=== PATIENT | male | born 1950 | race African-American/Black ===

== ENCOUNTER 2020-05-22 04:24 | Inpatient (IN) | payer OTHER ==
[2020-05-21 08:36] VITALS: BMI 23.0
[2020-05-22 10:57] LABS: HEMATOCRIT 36.1 % (35.4-49); MCH 30.7 pg (25.7-33.7); MCHC 33.4 g/dl (32.0-35.9); MEAN CELL VOLUME 91.9 fl (80-96); MEAN PLT VOLUME 6.8 fl (7.5-11.1); PLATELET COUNT 302 K/MM3 (134-434); RBC 3.92 M/mm3 (4.00-5.60); RDW 13.1 % (11.9-15.9); WHITE BLOOD COUNT 6.6 K/mm3 (4.0-10.0)
[2020-05-22] MEDS ORDERED: CEFAZOLIN 2 GM in DEXTROSE 5%-WATER 100 ML IVPB ONE (11:12)
[2020-05-22] MEDS ORDERED: ceFAZolin SODIUM 1 GM VIAL ONE ×2 (11:49→16:37)
--- NOTE | 2020-05-22 12:02 | HP ---
History & Physical Update - History History: No Change - Physical Physical: No Change - Assessment Assessment: No Change - Plan Plan: No Change (h/o dvt 1 year ago, off eliquis 1 month)
[2020-05-22] MEDS ORDERED: MIDAZOLAM HCL 2 MG/2 ML SINGLE DOSE VIAL ONE (12:18)
[2020-05-22] MEDS ORDERED: ceFAZolin SODIUM 1 GM VIAL IVPB ONE (12:22)
[2020-05-22] MEDS ORDERED: PROPOFOL 20 ML ONE (12:43)
[2020-05-22] MEDS ORDERED: EPHEDRINE SULFATE/0.9% NACL/PF 50 MG/10 ML SYRINGE NR ONE (12:44)
[2020-05-22] MEDS ORDERED: MAGNESIUM HYDROX 2400MG/30ML ORAL SUSPENSION 30 ML CUP PO PRN (14:43)
[2020-05-22] MEDS ORDERED: ONDANSETRON 4 MG/2 ML VIAL IVPUSH PRN ×2 (14:43→14:51)
[2020-05-22] MEDS ORDERED: MAG HYDROX/AL HYDROX/SIMETH 30 ML UNIT-DOSE CUP PO PRN (14:43)
[2020-05-22] MEDS ORDERED: LACTATED RINGERS SOLUTION 1,000 ML IV SCH ×2 (14:45→15:00)
[2020-05-22] MEDS ORDERED: ACETAMINOPHEN 325 MG TABLET (FP) PO PRN (14:51)
[2020-05-22] MEDS ORDERED: HYDROmorphone HCl 2 MG/ML VIAL IVPUSH ONE (14:54)
[2020-05-22] MEDS ORDERED: oxyCODONE HCL 5 MG TABLET PO PRN ×2 (15:08)
[2020-05-22] MEDS ORDERED: BENZOCAINE/MENTH/CETYLPYRD CL 1 EACH LOZENGE MM PRN (15:10)
[2020-05-22] MEDS ORDERED: FAMOTIDINE 20 MG TABLET PO PRN (15:10)
--- NOTE | 2020-05-22 16:06 | OP ---
DATE OF OPERATION: 05/22/2020 PREOPERATIVE DIAGNOSIS: Severe osteoarthritis of the right hip. POSTOPERATIVE DIAGNOSES: Severe osteoarthritis of the right hip, plus hypertrophic capsulitis. SURGEON: Kyaw Hayden MD ANESTHESIA: Spinal. PROCEDURE: Total hip replacement, excision of hypertrophied capsule and ossification of the acetabulum. After the induction of spinal anesthesia, the patient was placed on his left lateral decubitus, and the pelvis was stabilized in a near-perfect vertical position using an appropriate positioner. Following this, the entire leg and knee and thigh and gluteal area were now prepped and draped in a free manner. A 12-cm incision was made over the lateral aspect of the hip centered over the greater trochanter. It was deepened through the subcutaneous tissue, down to the fascia which was incised in line with the skin incision. The fibers of the gluteus rené were split in the same direction. The retrotrochanteric area now was visualized. A gentle internal rotation was applied to the leg. The rotators of the hip were now identified, and they were released from their insertion over the intertrochanteric line. Further internal rotation was done, and the femoral head now was dislocated from the acetabulum. Inspection confirmed massive arthritic changes in the form of large areas of absence of articular cartilage as well as marginal osteophytes. Inspection of the acetabulum showed very severe hypertrophy of the synovium and the round ligament. There were large marginal osteophytes around the acetabulum. The procedure started first by excision of the hypertrophied capsule. This was followed by removal of all the peripheral osteophytes. Following this, progressive reaming of the acetabulum was done until I was able to reach a 54-mm diameter. A trial cup showed a very good seating. The area was irrigated further with normal saline, hemostasis obtained, and the final acetabular cup from a [employer] [place] prosthesis were now press-fit into the acetabulum. Even though the cup was very solid, I decided to supplement the fixation with 1 single screw into the ilium. The polyethylene liner for a 36-mm femoral ball was now press-fit into the acetabular shell. Its fixation was checked, and it was found to be very solid. Attention now was turned to the femoral canal which was reamed and broached to a number 12 [place] stem. A trial with a 56-mm femoral ball +4 showed very good stability of the hip even when it was taken into 90 degrees of flexion and 60 degrees of internal rotation. All temporary components now were removed. Irrigation was done again with normal saline. The final stem now was press-fit within the intramedullary canal in the appropriate direction of anteversion. It was covered by the femoral ball and reduced into the acetabulum. One more time, the stability was checked, and it was found to be very stable even up to 90 degrees of flexion and 60 degrees of internal rotation. Final irrigation was done with normal saline, hemostasis obtained, and the wound closed in several layers, Vicryl No. 1 for the capsule and the fascia, 2-0 for the subcutaneous tissue, and ravi for the skin. A dressing was applied. Patient was turned on his back. Intraoperative x-rays were done and checked, and showed an excellent seating and alignment of the prosthesis. The patient tolerated the procedure and left the operating room in excellent condition. Gilberto [id number]
[2020-05-22] MEDS: CEFAZOLIN 2 GM/D5W 2 GM/50 ML ML IVPB SCH ×2 (17:05→17:29)
--- NOTE | 2020-05-22 18:40 | PN ---
Teaching Attending Note Name of Resident: Bernardino Deng ATTENDING PHYSICIAN STATEMENT I saw and evaluated the patient. I reviewed the resident's note and discussed the case with the resident. I agree with the resident's findings and plan as documented. SUBJECTIVE: OBJECTIVE: ASSESSMENT AND PLAN: 70 year old male with a PMHx notable for DVT (has been off eliquis x 1 month), hyperlipidemia, osteoarthritis, and hypothyrodism He is post-op day #0 s/p hip replacement surgery. PLAN # s/p hip replacement surgery- further management as per ortho - post op DVT prophylaxsis with SQ lovenox, duration as per ortho # DVT (off eliqis x 1 month) ? Resume eliquis after recovery # Hyperlipidemia- resume statin Thank you very much for the courtesy of this consult, will follow along with you
--- NOTE | 2020-05-22 19:35 | HP ---
CHIEF COMPLAINT: Post op hip replacement PCP: Dr. Jose Deng HISTORY OF PRESENT ILLNESS: Mr. Cartagena is a 70M w a h/o HTN, HLD, possible provoked DVT on eliquis for 1 year, history of alcohol abuse, and current 1/2 ppd smoker presenting POD#0 total right hip replacement. Patient noted to have right sided hip pain for the past decade. He was refered by his primary care physician for a total right hip replacement. Patient denies any complaints of pain, fatigue, fever, sweating, SOB, chest pain, numbness or tingling in his UE or LE. Patient is tolerating a full diet and will be monitored for 24 hours before rehab placement. Patient noted to have been on 2L on NC. Recent Travel: Denies PAST MEDICAL HISTORY: hpi PAST SURGICAL HISTORY: hpi Social History: Smokin.5 PPD for 53 years Alcohol: in the past Drugs: denies Allergies No Known Allergies Allergy (Verified 05/22/20 11:12) HOME MEDICATIONS: Home Medications Medication Instructions Recorded Levothyroxine [Synthroid -] 100 mcg PO DAILY 05/21/20 Rosuvastatin [Crestor -] 10 mg PO DAILY 05/21/20 Saw/Vit E/Sod Eliana/Lyc/Beta/Pyg 1 each PO DAILY 05/21/20 [[facility]] REVIEW OF SYSTEMS CONSTITUTIONAL: Absent: fever, chills, diaphoresis, generalized weakness, malaise, loss of appetite, weight change HEENT: Absent: rhinorrhea, nasal congestion, throat pain, throat swelling, difficulty swallowing, mouth swelling, ear pain, eye pain, visual changes CARDIOVASCULAR: Absent: chest pain, syncope, palpitations, irregular heart rate, lightheadedness, peripheral edema RESPIRATORY: Absent: cough, shortness of breath, dyspnea with exertion, orthopnea, wheezing, stridor, hemoptysis GASTROINTESTINAL: Absent: abdominal pain, abdominal distension, nausea, vomiting, diarrhea, constipation, melena, hematochezia GENITOURINARY: Absent: dysuria, frequency, urgency, hesitancy, hematuria, flank pain, genital pain PSYCHIATRIC: Absent: anxiety, depression, suicidal or homicidal ideation, hallucinations. PHYSICAL EXAMINATION Vital Signs - 24 hr 05/22/20 05/22/20 05/22/20 14:46 15:05 15:20 Temperature 98.4 F Pulse Rate 47 L 47 L 45 L Respiratory 14 16 16 Rate Blood Pressure 155/64 142/69 146/69 O2 Sat by Pulse 100 100 100 Oximetry (%) 05/22/20 05/22/20 05/22/20 15:35 15:50 16:05 Temperature Pulse Rate 46 L 46 L 47 L Respiratory 16 16 16 Rate Blood Pressure 146/69 143/76 143/74 O2 Sat by Pulse 100 100 100 Oximetry (%) 05/22/20 05/22/20 05/22/20 16:20 16:35 16:46 Temperature 97.8 F Pulse Rate 48 L 48 L 48 L Respiratory 16 14 15 Rate Blood Pressure 140/74 140/67 143/73 O2 Sat by Pulse 100 100 100 Oximetry (%) 05/22/20 17:26 Temperature 98 F Pulse Rate 58 L Respiratory 18 Rate Blood Pressure 147/82 O2 Sat by Pulse 100 Oximetry (%) GENERAL: Awake, alert, and fully oriented, in no acute distress. LUNGS: Breath sounds equal, clear to auscultation bilaterally. No wheezes, and no crackles. No accessory muscle use. HEART: Regular rate and rhythm, normal S1 and S2 without murmur, rub or gallop. ABDOMEN: Soft, nontender, not distended, normoactive bowel sounds, no guarding, no rebound, no masses. No hepatomegaly or splenomegaly. UPPER EXTREMITIES: 2+ pulses, warm, well-perfused. No cyanosis. No clubbing. No peripheral edema. LOWER EXTREMITIES: 2+ pulses, warm, well-perfused. No calf tenderness. No peripheral edema. SKIN: Warm, dry, normal turgor, no rashes or lesions noted, normal capillary refill. Laboratory Results - last 24 hr 05/22/20 05/22/20 10:15 10:15 WBC 6.6 RBC 3.92 L Hgb 12.0 Hct 36.1 MCV 91.9 MCH 30.7 MCHC 33.4 RDW 13.1 Plt Count 302 MPV 6.8 L Blood Type O POSITIVE Antibody Screen Negative ASSESSMENT/PLAN: Mr. Cartagena is a 70M w a h/o HTN, HLD, possible provoked DVT on eliquis for 1 year, osteoarthritis, hypothyroidism history of alcohol abuse, and current 1/2 ppd smoker presenting POD#0 total right hip replacement. Patient noted to have right sided hip pain for the past decade. PLAN # s/p hip replacement surgery - monitor 24 for fever, tachycardia, flatus/BM - patient tolerating full diet - monitor wound and LE pulses - patient placed on Lovenox sq 30BID - pain control - oxycodone 10mg prn Q3H - acetaminophen 650 q4h prn - LR ABX ppx- cephazolin 2gm Q8H # DVT ppx - patient placed on lovenox 30 BID SQ - patient will continue asa 81 BID for at least 30 days # Hyperlipidemia - Home Rosuvastain 10mg PO HS #Hypothyroidism - Levothyroxin 100mcg Family Medical History Family History: Denies Visit type - Medication Review Med list reviewed for High Risk Meds patients 65 and older: Yes - Emergency Visit Emergency Visit: No - New Patient This patient is new to me today: Yes Date on this admission: 05/22/20 - Critical Care Critical Care patient: No ATTENDING PHYSICIAN STATEMENT I saw and evaluated the patient. I reviewed the resident's note and discussed the case with the resident. I agree with the resident's findings and plan as documented. SUBJECTIVE: OBJECTIVE: ASSESSMENT AND PLAN:
[2020-05-22] MEDS: ROSUVASTATIN CA 10 MG TABLET (FP) PO SCH (22:18)
[2020-05-22] MEDS: SENNOSIDES/DOCUSATE COMBO (SENNA PLUS) TABLET (UD) PO SCH (22:19)
[2020-05-23] MEDS: CEFAZOLIN 2 GM/D5W 2 GM/50 ML ML IVPB SCH ×2 (03:00→09:20)
[2020-05-23] MEDS: LEVOTHYROXINE NA 100 MCG TABLET (FP) PO SCH (06:25)
--- NOTE | 2020-05-23 08:01 | PN ---
HC Provider Note Provider Note: Anesthesia Post Op Note Pt s/p spinal for THR Pt awake alert denies h/a, n/v, puritis no urinary retention good pain control VSS no apparent anesthesia complications Keara Perkins.
[2020-05-23 08:26] LABS: BLOOD UREA NITROGEN 10.6 mg/dL (7-18); CALCIUM 8.5 mg/dL (8.5-10.1); CREATININE 1.1 mg/dL (0.55-1.3); HEMOGLOBIN 10.2 GM/dL (11.7-16.9); MCH 31.4 pg (25.7-33.7); MCHC 33.9 g/dl (32.0-35.9); MEAN CELL VOLUME 92.7 fl (80-96); MEAN PLT VOLUME 7.3 fl (7.5-11.1); PLATELET COUNT 246 K/MM3 (134-434); POTASSIUM 3.8 mmol/L (3.5-5.1); RBC 3.23 M/mm3 (4.00-5.60); RDW 12.8 % (11.9-15.9)
[2020-05-23] MEDS: PANTOPRAZOLE 40 MG TABLET PO SCH (09:16)
[2020-05-23] MEDS: MULTIVITAMINS (DAILY MVI) TABLET (FP) PO SCH (09:17)
[2020-05-23] MEDS: ENOXAPARIN NA (PORCINE) 30 MG/0.3 ML DISP.SYRIN SQ SCH ×2 (09:17→21:17)
[2020-05-23] MEDS: SENNOSIDES/DOCUSATE COMBO (SENNA PLUS) TABLET (UD) PO SCH ×2 (09:21→21:17)
--- NOTE | 2020-05-23 10:11 | OP ---
Operative Note - Note: Operative Date: 05/22/20 Pre-Operative Diagnosis: right hip osteoarthritis Operation: Right total hip replacement Findings: as dictated Implants: as dictated Post-Operative Diagnosis: Same as Pre-op Surgeon: Kyaw Hayden I [place] Mechanic: Rick Yoder Anesthesiologist/DIRECTOR OF EXTENSION WORK: Gina Maldonado Anesthesia: Spinal Specimens Removed: femoral head/neck, bone chips Estimated Blood Loss (mls): 250 (ml) Fluid Volume Replaced (mls): 1,200 (ml LR) Operative Report Dictated: Yes
--- NOTE | 2020-05-23 10:12 | SURG ---
Surgery Leasing Manager Note Leasing Manager: Rick Yoder PA-C (Suzy) Date of Service: 05/22/20 Diagnosis: right hip osteoarthritis Procedure: Right total hip replacement I was present for the entirety of the operative procedure. For further detail, please refer to operative report. Visit type - Case Type Case Type: Scheduled - Emergency Emergency Visit: No - New patient This patient is new to me today: Yes Date on this admission: 05/23/20 - Critical Care Critical Care patient: No
--- NOTE | 2020-05-23 10:14 | PN ---
Progress Note (short form) - Note Progress Note: POD 1, s/p R JULISA Pt seen and examined. Reports he is doing well. Has some lower back pain while in bed. Has not been oob yet. Tolerating PO, voiding without issue. Reports block feels like "it is wearing off". Denies cp/sob, n/v/d. Vital Signs Temp 98.2 F 05/23/20 06:00 Pulse 56 L 05/23/20 06:00 Resp 16 05/23/20 06:00 BP 121/66 05/23/20 06:00 Pulse Ox 96 05/23/20 06:00 Intake & Output 05/22/20 05/22/20 05/23/20 11:59 23:59 11:59 Intake Total 1400 200 Output Total 250 Balance 1400 -50 Intake: IV 1400 200 Output: Estimated Blood Loss 250 Other: Voiding Method Urinal Urinal CBC, BMP 05/23/20 06:59 05/23/20 06:59 Gen: awake, alert, nad Resp: Unlabored on RA Abdo: soft, nt/nd Ext: R hip dressing c/d/i (replaced by resident overnight d/t saturation). 5/5 b/l df/pf, silt b/l les A/P: 70 y/o M w PMHx HTN, HLD, possible provoked DVT on eliquis for 1 year, history of alcohol abuse, and current 1/2 ppd smoker, Hip OA, now admitted for elective R JULISA, POD 1, s/p R JULISA afebrile, vss Labs reviewed Exam stable Pain control with tylenol 650mg q4hrs prn, oxycodone 5/10mg q3hrs prn, morphine 2mg iv for btp OOB with PT, full weight bearing Bactrim DS bid x 10 days (to begin tonight) Lovenox 30mg bid until tonight, ASA 81mg bid to begin tomorrow AM x 6 weeks Regular diet neurovascular checks per protocol Abduction pillow at all times while in bed, posterior hip precautions Remainder of care per medical team d/w attending Dr Hayden
[2020-05-23] MEDS ORDERED: PNEUMOC 13-VAL CONJ-DIP CRM/PF 0.5 ML DISP.SYRIN IM ONE (12:00)
--- NOTE | 2020-05-23 13:59 | PN ---
Progress Note, Physician Chief Complaint: right hip OA s/p R hip replacement. Pt OOB to chair and also worked with PT. History of Present Illness: Mr. Cartagena is a 70M w a h/o HTN, HLD, possible provoked DVT on eliquis for 1 year, history of alcohol abuse, and current 1/2 ppd smoker presenting POD#0 total right hip replacement. Patient noted to have right sided hip pain for the past decade. He was refered by his primary care physician for a total right hip replacement. - Current Medication List Current Medications: Active Medications Acetaminophen (Tylenol -) 650 mg PO Q4H PRN PRN Reason: PAIN LEVEL 1 - 3 Al Hydroxide/Mg Hydroxide (Mylanta Oral Suspension -) 30 ml PO Q4H PRN PRN Reason: DYSPEPSIA Benzocaine/Menthol (Cepacol Lozenge -) 1 each MM PRN PRN PRN Reason: SORE THROAT Enoxaparin Sodium (Lovenox -) 30 mg SQ BID [facility] Last Admin: 05/23/20 09:17 Dose: 30 mg Documented by: Fentanyl (Sublimaze Injection -) 50 mcg IVPUSH [id number] PRN PRN Reason: PAIN-PACU ORDER X 4 DOSES ONLY Cefazolin Sodium/Dextrose (Ancef 2 Gm Premixed Ivpb -) 2 gm in 50 mls @ 200 mls/hr IVPB Q8H-IV [place] Stop: 05/23/20 17:59 Last Admin: 05/23/20 09:20 Dose: 200 mls/hr Documented by: Levothyroxine Sodium (Synthroid -) 100 mcg PO 0700 [facility] Last Admin: 05/23/20 06:25 Dose: 100 mcg Documented by: Magnesium Hydroxide (Milk Of Magnesia -) 30 ml PO PRN PRN PRN Reason: CONSTIPATION Multivitamins/Minerals/Vitamin C (Tab-A-Vit -) 1 tab PO DAILY [facility] Last Admin: 05/23/20 09:17 Dose: 1 tab Documented by: Ondansetron HCl (Zofran Injection) 4 mg IVPUSH Q6H PRN PRN Reason: NAUSEA Oxycodone HCl (Roxicodone -) 5 mg PO Q3H PRN PRN Reason: PAIN LEVEL 1-5 Last Admin: 05/22/20 22:17 Dose: 5 mg Documented by: Oxycodone HCl (Roxicodone -) 10 mg PO Q3H PRN PRN Reason: PAIN LEVEL 7 - 10 Last Admin: 05/23/20 09:17 Dose: 10 mg Documented by: Pantoprazole Sodium (Protonix -) 40 mg PO DAILY [facility] Last Admin: 05/23/20 09:16 Dose: 40 mg Documented by: Rosuvastatin Calcium (Crestor -) 10 mg PO HS [facility] Last Admin: 05/22/20 22:18 Dose: 10 mg Documented by: Senna/Docusate Sodium (Pericolace -) 2 tablet PO BID [facility] Last Admin: 05/23/20 09:21 Dose: 2 tablet Documented by: Trimethoprim/Sulfamethoxazole (Bactrim Ds -) 1 each PO BID [facility] - Objective Vital Signs: Vital Signs Temperature 98.2 F 05/23/20 06:00 Pulse Rate 56 L 05/23/20 06:00 Respiratory Rate 16 05/23/20 06:00 Blood Pressure 121/66 05/23/20 06:00 O2 Sat by Pulse Oximetry (%) 96 05/23/20 06:00 Constitutional: Yes: No Distress, Calm Eyes: Yes: Conjunctiva Clear HENT: Yes: Atraumatic, Other (poor dentition) Cardiovascular: Yes: Bradycardia Respiratory: Yes: Regular, CTA Bilaterally Gastrointestinal: Yes: Soft, Hypoactive Bowel Sounds Musculoskeletal: Yes: WNL Extremities: Yes: Other (right hip with clean dry dressing) Edema: No Peripheral Pulses WNL: Yes Peripheral Pulses: Left Radial: 2+, Right Radial: 2+, Left Doralis Pedis: 2+, R ight Dorsalis Pedis: 2+ Integumentary: Yes: WNL Wound/Incision: Yes: Clean/Dry Neurological: Yes: Alert, Oriented ...Motor Strength: WNL Psychiatric: Yes: Alert, Oriented Labs: CBC, BMP 05/23/20 06:59 05/23/20 06:59 - ....Imaging Chest X-ray: Report Reviewed (Right hip x-ray 05/22/2020 The impression is well seated within the acetabulum and femoral shaft. read by Dr. Jonnathan Bowling MD) Problem List - Problems (1) Status post right hip replacement Assessment/Plan: Plan as outlined by surgical team: pain control with tylenol 650mg q4hrs prn, oxycodone 5/10mg q3hrs prn, OOB with PT, full weight bearing Bactrim DS bid x 10 days Lovenox 30mg bid until tonight, ASA 81mg bid to begin tomorrow AM x 6 weeks Code(s): Z96.641 - PRESENCE OF RIGHT ARTIFICIAL HIP JOINT (2) Hypothyroidism Assessment/Plan: continue synthroid 100mcg daily Code(s): E03.9 - HYPOTHYROIDISM, UNSPECIFIED (3) HLD (hyperlipidemia) Assessment/Plan: crestor 10mg daily' cardiac diet Code(s): E78.5 - HYPERLIPIDEMIA, UNSPECIFIED Impression/Plan Impression/Plan: Dispo: [facility] evaluating patient for placement, as per surgery he can be discharged on post-op Day #3 Code status: Full code Visit type - Emergency Visit Emergency Visit: No - New Patient This patient is new to me today: Yes Date on this admission: 05/23/20 - Critical Care Critical Care patient: No - Discharge Referral Referred to [facility] Med P.C.: No - Medication Review Med list reviewed for High Risk Meds patients 65 and older: Yes
[2020-05-23] MEDS: SULFAMETHOXAZOLE/TRIMETHOPRIM 800MG/160MG D.S. TABLET PO SCH (21:17)
[2020-05-23] MEDS: ROSUVASTATIN CA 10 MG TABLET (FP) PO SCH (21:23)
[2020-05-23] MEDS: ACETAMINOPHEN 325 MG TABLET (FP) PO PRN (22:18)
[2020-05-24] MEDS: LEVOTHYROXINE NA 100 MCG TABLET (FP) PO SCH (06:09)
[2020-05-24 08:19] LABS: HEMOGLOBIN 9.7 GM/dL (11.7-16.9); MCH 31.7 pg (25.7-33.7); MCHC 34.6 g/dl (32.0-35.9); MEAN CELL VOLUME 91.6 fl (80-96); MEAN PLT VOLUME 7.5 fl (7.5-11.1); PLATELET COUNT 232 K/MM3 (134-434); RBC 3.06 M/mm3 (4.00-5.60); RDW 12.9 % (11.9-15.9)
[2020-05-24] MEDS: PANTOPRAZOLE 40 MG TABLET PO SCH (09:18)
[2020-05-24] MEDS: SENNOSIDES/DOCUSATE COMBO (SENNA PLUS) TABLET (UD) PO SCH ×2 (09:18→21:21)
[2020-05-24] MEDS: SULFAMETHOXAZOLE/TRIMETHOPRIM 800MG/160MG D.S. TABLET PO SCH ×2 (09:18→21:20)
[2020-05-24] MEDS: MULTIVITAMINS (DAILY MVI) TABLET (FP) PO SCH (09:18)
[2020-05-24] MEDS: ASPIRIN COATED 81 MG TABLET.EC PO SCH ×2 (09:19→21:20)
--- NOTE | 2020-05-24 16:35 | PN ---
Progress Note, Physician Chief Complaint: No acute events overnight History of Present Illness: Mr. Cartagena is a 70M w a h/o HTN, HLD, possible provoked DVT on eliquis for 1 year, history of alcohol abuse, and current 1/2 ppd smoker s/p total right hip replacement on May 23. Patient noted to have right sided hip pain for the past decade. He was refered by his primary care physician for a total right hip replacement. - Current Medication List Current Medications: Active Medications Acetaminophen (Tylenol -) 650 mg PO Q4H PRN PRN Reason: PAIN LEVEL 1 - 3 Last Admin: 05/23/20 22:18 Dose: 650 mg Documented by: Al Hydroxide/Mg Hydroxide (Mylanta Oral Suspension -) 30 ml PO Q4H PRN PRN Reason: DYSPEPSIA Aspirin (Ecotrin -) 81 mg PO BID [facility] Last Admin: 05/24/20 09:19 Dose: 81 mg Documented by: Benzocaine/Menthol (Cepacol Lozenge -) 1 each MM PRN PRN PRN Reason: SORE THROAT Levothyroxine Sodium (Synthroid -) 100 mcg PO 0700 [facility] Last Admin: 05/24/20 06:09 Dose: 100 mcg Documented by: Magnesium Hydroxide (Milk Of Magnesia -) 30 ml PO PRN PRN PRN Reason: CONSTIPATION Multivitamins/Minerals/Vitamin C (Tab-A-Vit -) 1 tab PO DAILY [facility] Last Admin: 05/24/20 09:18 Dose: 1 tab Documented by: Ondansetron HCl (Zofran Injection) 4 mg IVPUSH Q6H PRN PRN Reason: NAUSEA Oxycodone HCl (Roxicodone -) 5 mg PO Q3H PRN PRN Reason: PAIN LEVEL 1-5 Last Admin: 05/22/20 22:17 Dose: 5 mg Documented by: Oxycodone HCl (Roxicodone -) 10 mg PO Q3H PRN PRN Reason: PAIN LEVEL 7 - 10 Last Admin: 05/23/20 09:17 Dose: 10 mg Documented by: Pantoprazole Sodium (Protonix -) 40 mg PO DAILY [facility] Last Admin: 05/24/20 09:18 Dose: 40 mg Documented by: Rosuvastatin Calcium (Crestor -) 10 mg PO HS [facility] Last Admin: 05/23/20 21:23 Dose: Not Given Documented by: Senna/Docusate Sodium (Pericolace -) 2 tablet PO BID [facility] Last Admin: 05/24/20 09:18 Dose: 2 tablet Documented by: Trimethoprim/Sulfamethoxazole (Bactrim Ds -) 1 each PO BID [facility] Last Admin: 05/24/20 09:18 Dose: 1 each Documented by: - Objective Vital Signs: Vital Signs Temperature 99.8 F H 05/24/20 13:00 Pulse Rate 85 05/24/20 13:00 Respiratory Rate 20 05/24/20 13:00 Blood Pressure 125/67 05/24/20 13:00 O2 Sat by Pulse Oximetry (%) 98 05/24/20 13:00 Constitutional: Yes: Well Nourished, No Distress, Calm Eyes: Yes: WNL, Conjunctiva Clear, EOM Intact HENT: Yes: WNL, Atraumatic, Normocephalic Neck: Yes: WNL, Supple, Trachea Midline Cardiovascular: Yes: WNL, Regular Rate and Rhythm Respiratory: Yes: WNL, Regular, CTA Bilaterally Gastrointestinal: Yes: WNL, Normal Bowel Sounds, Soft Musculoskeletal: Yes: WNL Extremities: Yes: WNL Edema: No Peripheral Pulses WNL: Yes Integumentary: Yes: WNL Wound/Incision: Yes: Clean/Dry, Well Approximated Neurological: Yes: WNL, Alert, Oriented ...Motor Strength: WNL Psychiatric: Yes: WNL, Alert, Oriented Labs: CBC, BMP 05/24/20 07:00 05/23/20 06:59 Impression/Plan Impression/Plan: Mr. Cartagena is a 70M w a h/o HTN, HLD, possible provoked DVT on eliquis for 1 year, history of alcohol abuse, and current 1/2 ppd smoker s/p total right hip replacement on May 23. Patient noted to have right sided hip pain for the past decade. He was referred by his primary care physician for a total right hip replacement. 1) Status post right hip replacement Assessment/Plan: Plan as outlined by surgical team: pain control with tylenol 650mg q4hrs prn, oxycodone 5/10mg q3hrs prn, OOB with PT, full weight bearing Bactrim DS bid x 10 days s/p SQ Lovenox now on ASA 81mg bid to plan for x 6 weeks Code(s): Z96.641 - PRESENCE OF RIGHT ARTIFICIAL HIP JOINT (2) Hypothyroidism Assessment/Plan: continue synthroid 100mcg daily Code(s): E03.9 - HYPOTHYROIDISM, UNSPECIFIED (3) HLD (hyperlipidemia) Assessment/Plan: crestor 10mg daily' cardiac diet Code(s): E78.5 - HYPERLIPIDEMIA, UNSPECIFIED Impression/Plan Impression/Plan: Dispo: Social Work evaluating patient for placement, as per surgery he can be discharged on post-op Day #3 Code status: Full code Visit type - Emergency Visit Emergency Visit: Yes ED Registration Date: 05/22/20 Care time: The patient presented to the Emergency Department on the above date and was hospitalized for further evaluation of their emergent condition. - New Patient This patient is new to me today: Yes Date on this admission: 05/24/20 - Critical Care Critical Care patient: No - Discharge Referral Referred to [facility] Med P.C.: No - Medication Review Med list reviewed for High Risk Meds patients 65 and older: No
[2020-05-24] MEDS: ROSUVASTATIN CA 10 MG TABLET (FP) PO SCH (21:20)
[2020-05-25] MEDS: LEVOTHYROXINE NA 100 MCG TABLET (FP) PO SCH (06:57)
[2020-05-25 08:13] LABS: BASO % 0.3 % (0-2.0); EOS % 1.2 % (0-4.5); HEMATOCRIT 27.7 % (35.4-49); HEMOGLOBIN 9.6 GM/dL (11.7-16.9); MCH 31.9 pg (25.7-33.7); MCHC 34.7 g/dl (32.0-35.9); MEAN PLT VOLUME 7.3 fl (7.5-11.1); MONO % 7.7 % (3.8-10.2); NEUT % 72.8 % (42.8-82.8); PLATELET COUNT 245 K/MM3 (134-434); RBC 3.01 M/mm3 (4.00-5.60); RDW 12.8 % (11.9-15.9); WHITE BLOOD COUNT 10.8 K/mm3 (4.0-10.0)
[2020-05-25] MEDS: SULFAMETHOXAZOLE/TRIMETHOPRIM 800MG/160MG D.S. TABLET PO SCH ×3 (09:20→21:08)
[2020-05-25] MEDS: PANTOPRAZOLE 40 MG TABLET PO SCH (09:20)
[2020-05-25] MEDS: ASPIRIN COATED 81 MG TABLET.EC PO SCH ×3 (09:20→21:08)
[2020-05-25] MEDS: MULTIVITAMINS (DAILY MVI) TABLET (FP) PO SCH (09:20)
[2020-05-25] MEDS: SENNOSIDES/DOCUSATE COMBO (SENNA PLUS) TABLET (UD) PO SCH ×2 (09:20→21:08)
[2020-05-25] MEDS ORDERED: PT OWN MED DRAWER 7, Y5N ONE (09:25)
--- NOTE | 2020-05-25 11:36 | PN ---
Physical Exam: SUBJECTIVE: Patient seen and examined 05/25/2020: No cp, sob, n/v/f/c; right hip is sore but doing well, states he ambulated yest; voiding fine. no fevers or chills OBJECTIVE: Vital Signs Period Temp Pulse Resp BP Sys/Astorga Pulse Ox Last 24 Hr 98.3 F-99.8 F 61-89 16-20 108-125/53-67 93-98 GENERAL: The patient is awake, alert, and fully oriented, in no acute distress. HEAD: Normal with no signs of trauma. EYES: extraocular movements intact, sclera anicteric, conjunctiva clear. No ptosis. ENT: Ears normal, nares patent, oropharynx clear without exudates, moist mucous membranes. NECK: Trachea midline, full range of motion, supple. LUNGS: Breath sounds equal, clear to auscultation bilaterally, no wheezes, no crackles, no accessory muscle use. HEART: Regular rate and rhythm, S1, S2 without murmur, rub or gallop. ABDOMEN: Soft, nontender, nondistended, normoactive bowel sounds, no guarding, no rebound, no hepatosplenomegaly, no masses. DECREASED BS [place] EXTREMITIES: 2+ pulses, warm, well-perfused, RIGHT HIP EDEMA WITH DRESSING C/D/I NEUROLOGICAL: Cranial nerves II through XII grossly intact. Normal speech, gait not observed. PSYCH: Normal mood, normal affect. SKIN: Warm, dry, normal turgor, no rashes or lesions noted Laboratory Results - last 24 hr 05/25/20 07:15 WBC 10.8 H RBC 3.01 L Hgb 9.6 L Hct 27.7 L MCV 92.0 MCH 31.9 MCHC 34.7 RDW 12.8 Plt Count 245 MPV 7.3 L Absolute Neuts (auto) 7.9 Neutrophils % 72.8 Lymphocytes % 18.0 Monocytes % 7.7 Eosinophils % 1.2 Basophils % 0.3 Nucleated RBC % 0 Active Medications Generic Name Dose Route Start Last Admin Trade Name Freq PRN Reason Stop Dose Admin Acetaminophen 650 mg 05/23/20 02:00 05/23/20 22:18 Tylenol - PO 650 mg Q4H PRN Administration PAIN LEVEL 1 - 3 Al Hydroxide/Mg Hydroxide 30 ml 05/22/20 14:43 Mylanta Oral Suspension - PO Q4H PRN DYSPEPSIA Aspirin 81 mg 05/24/20 10:00 05/25/20 09:20 Ecotrin - PO 81 mg BID CORAZON Administration Benzocaine/Menthol 1 each 05/22/20 15:10 Cepacol Lozenge - MM PRN PRN SORE THROAT Levothyroxine Sodium 100 mcg 05/23/20 07:00 05/25/20 06:57 Synthroid - PO 100 mcg 0700 CORAZON Administration Magnesium Hydroxide 30 ml 05/22/20 14:43 Milk Of Magnesia - PO PRN PRN CONSTIPATION Multivitamins/Minerals/Vitamin C 1 tab 05/23/20 10:00 05/25/20 09:20 Tab-A-Vit - PO 1 tab DAILY CORAZON Administration Ondansetron HCl 4 mg 05/22/20 14:43 Zofran Injection IVPUSH Q6H PRN NAUSEA Oxycodone HCl 5 mg 05/22/20 15:08 05/22/20 22:17 Roxicodone - PO 5 mg Q3H PRN Administration PAIN LEVEL 1-5 Oxycodone HCl 10 mg 05/22/20 15:08 05/23/20 09:17 Roxicodone - PO 10 mg Q3H PRN Administration PAIN LEVEL 7 - 10 Pantoprazole Sodium 40 mg 05/23/20 10:00 05/25/20 09:20 Protonix - PO 40 mg DAILY CORAZON Administration Rosuvastatin Calcium 10 mg 05/22/20 22:00 05/24/20 21:20 Crestor - PO 10 mg HS CORAZON Administration Senna/Docusate Sodium 2 tablet 05/22/20 22:00 05/25/20 09:20 Pericolace - PO 2 tablet BID CORAZON Administration Trimethoprim/Sulfamethoxazole 1 each 05/23/20 22:00 05/25/20 09:20 Bactrim Ds - PO 1 each BID CORAOZN Administration ASSESSMENT/PLAN: Mr. Cartagena is a 70M w a h/o HTN, HLD, possible provoked DVT on eliquis for 1 year, history of alcohol abuse, and current 1/2 ppd smoker s/p total right hip replacement on May 23. Patient noted to have right sided hip pain for the past decade. He was referred by his primary care physician for a total right hip replacement. 1) Status post right hip replacement Assessment/Plan: POSTPROCEDURAL STATE pain control physical therapy Bactrim DS bid x 10 days as per ortho team s/p SQ Lovenox now on ASA 81mg bid to plan for x 6 weeks as per ortho Code(s): Z96.641 - PRESENCE OF RIGHT ARTIFICIAL HIP JOINT (2) Hypothyroidism Assessment/Plan: continue synthroid 100mcg daily Code(s): E03.9 - HYPOTHYROIDISM, UNSPECIFIED (3) HLD (hyperlipidemia) Assessment/Plan: crestor 10mg daily' cardiac diet Code(s): E78.5 - HYPERLIPIDEMIA, UNSPECIFIED (4) Anemia secondary to acute blood loss anemia h/h is stable (5) Leukocytosis secondary to stress response post op wbc normal today remains afebrile (6) DVT prophy - ASA 81mg twice daily as per ortho Impression/Plan Impression/Plan: Dispo: Social Work evaluating patient for placement, as per surgery he can be discharged on post-op Day #3 Visit type - Emergency Visit Emergency Visit: Yes ED Registration Date: 05/22/20 Care time: The patient presented to the Emergency Department on the above date and was hospitalized for further evaluation of their emergent condition. - New Patient This patient is new to me today: Yes Date on this admission: 05/25/20 - Critical Care Critical Care patient: No - Discharge Referral Referred to [facility] Med P.C.: No - Medication Review Med list reviewed for High Risk Meds patients 65 and older: Yes
[2020-05-25] MEDS: ROSUVASTATIN CA 10 MG TABLET (FP) PO SCH ×2 (19:57→21:08)
[2020-05-25] MEDS: ACETAMINOPHEN 325 MG TABLET (FP) PO PRN (19:58)
[2020-05-26] MEDS: LEVOTHYROXINE NA 100 MCG TABLET (FP) PO SCH (06:12)
[2020-05-26 08:26] VITALS: BP 105/60; PULSE 82; TEMP 98
[2020-05-26] MEDS ORDERED: PT OWN MED DRAWER 7, Y5N ONE (09:03)
[2020-05-26] MEDS: PANTOPRAZOLE 40 MG TABLET PO SCH (09:08)
[2020-05-26] MEDS: SENNOSIDES/DOCUSATE COMBO (SENNA PLUS) TABLET (UD) PO SCH (09:08)
[2020-05-26] MEDS: SULFAMETHOXAZOLE/TRIMETHOPRIM 800MG/160MG D.S. TABLET PO SCH (09:08)
[2020-05-26] MEDS: ASPIRIN COATED 81 MG TABLET.EC PO SCH (09:08)
[2020-05-26] MEDS: MULTIVITAMINS (DAILY MVI) TABLET (FP) PO SCH (09:08)
--- NOTE | 2020-05-26 09:28 | PN ---
Progress Note (short form) - Note Progress Note: SURGERY Spoke with Attending Surgeon Dr. Hayden, who states pt is cleared to be discharged to SNF. Pt should be discharged on Bactrim DS x 2 weeks as well as ASA BID x 1 month. Pt should follow up with Dr. Hayden in 1-2 weeks for postop check. Pt will be examined by attending surgeon later this morning.
[2020-05-26 12:11] LABS: HEMATOCRIT 28.4 % (35.4-49); HEMOGLOBIN 9.7 GM/dL (11.7-16.9); MCH 31.6 pg (25.7-33.7); MCHC 34.1 g/dl (32.0-35.9); MEAN CELL VOLUME 92.6 fl (80-96); MEAN PLT VOLUME 7.3 fl (7.5-11.1); PLATELET COUNT 287 K/MM3 (134-434); RBC 3.06 M/mm3 (4.00-5.60); RDW 12.9 % (11.9-15.9); WHITE BLOOD COUNT 9.8 K/mm3 (4.0-10.0)
--- NOTE | 2020-05-26 12:30 | PATH ---
Surgical Pathology Report Patient Name: LINDSEY IVORY Med. Rec. #: [id number] /Age/Gender: 1950 (Age: 70) / M Account: [id number] Location: [address] [place] [address]/[facility] Taken: 05/22/2020 Received: 05/23/2020 Reported: 05/26/2020 Physicians: Kyaw Hayden M.D. Specimen(s) Received RIGHT FEMORAL HEAD Clinical History Osteoarthritis right hip Final Diagnosis FEMORAL HEAD, RIGHT, TOTAL HIP REPLACEMENT: BONE WITH DEGENERATIVE JOINT DISEASE AND REACTIVE CHANGES. Electronically Signed Divya Schuster M.D. Gross Description Received in formalin, labeled "right femoral head," is a 4.5 x 4.5 x 4.4 cm. femoral head with a 1 cm in length portion of femoral neck attached. The margin of resection is smooth. The articular surface displays multifocal defects and the articular cartilage is lifting away from the underlying bone. The underlying bone shows marked degenerative changes. A passenger relations representative section is submitted in one cassette, following decalcification. [facility]
[2020-05-26 13:20] LABS: ALBUMIN 2.8 g/dl (3.4-5.0); BLOOD UREA NITROGEN 11.7 mg/dL (7-18); CALCIUM 8.8 mg/dL (8.5-10.1); CREATININE 1.2 mg/dL (0.55-1.3); MAGNESIUM 2.5 mg/dL (1.8-2.4); TOT PROT 7.2 g/dl (6.4-8.2)
--- NOTE | 2020-05-26 15:30 | DS ---
Physical Examination Vital Signs: Vital Signs Temperature 98 F 05/26/20 08:25 Pulse Rate 82 05/26/20 08:25 Respiratory Rate 18 05/26/20 09:00 Blood Pressure 105/60 05/26/20 08:25 O2 Sat by Pulse Oximetry (%) 97 05/26/20 09:00 Constitutional: Yes: Thin Eyes: Yes: Conjunctiva Clear, PERRL HENT: Yes: Atraumatic, Normocephalic, Other (poor dentition) Neck: Yes: Supple Cardiovascular: Yes: Regular Rate and Rhythm Respiratory: Yes: Regular, CTA Bilaterally Gastrointestinal: Yes: Normal Bowel Sounds, Soft ...Rectal Exam: Yes: Deferred Musculoskeletal: Yes: Joint Stiffness (right hi[) Extremities: Yes: WNL Edema: No Peripheral Pulses: Left Radial: 2+, Right Radial: 2+ Wound/Incision: Yes: Clean/Dry Neurological: Yes: Alert, Oriented ...Motor Strength: RLE (decreased) Psychiatric: Yes: Alert, Oriented Labs: CBC, BMP 05/26/20 11:05 05/26/20 11:16 Discharge Summary Problems reviewed: Yes Reason For Visit: UNILATERAL PRIMARY OSTEOARTHRITIS, RIGHT HIP Current Active Problems HLD (hyperlipidemia) (Acute) Hypothyroidism (Acute) Status post right hip replacement (Acute) Procedures: Principal: Operative Date: 05/22/20. Pre-Operative Diagnosis: right hip osteoarthritis. Operation: Right total hip replacement. Findings: as dictated. Implants: as dictated. Post-Operative Diagnosis: Same as Pre-op. Surgeon: Kyaw Hayden I. Surgical Scheduler: Rick Yoder. Anesthesiologist/SUPERVISOR PAPER MACHINE: Gina Maldonado. Anesthesia: Spinal. Specimens Removed: femoral head/neck, bone chips. Estimated Blood Loss (mls): 250 (ml). Fluid Volume Replaced (mls): 1,200 (ml LR). Operative Report Dictated: Yes Other Procedures: Right Hip Xray 05/22/2020. A single frontal portable projection of the right hip obtained following a total hip replacement procedure demonstrates the prosthesis well seated within the acetabulum and femoral shaft. Clinical correlation as to the nature of the procedure is recommended. Reported By: Jonnathan Bowling MD Hospital Course: Mr. Cartagena is a 70M w a h/o HTN, HLD, possible provoked DVT on eliquis for 1 year, history of alcohol abuse, and current 1/2 ppd smoker presenting POD#0 total right hip replacement. Patient noted to have right sided hip pain for the past decade. He was refered by his primary care physician for a total right hip replacement. Anesthesia Post Op Note Pt s/p spinal for THR Pt awake alert denies h/a, n/v, puritis no urinary retention good pain control Pt had uneventful hospital course and opted to be discharged home with VNS Follow up for home care and physical therapy. Health Concerns: Controlling Your Discomfort Your goal will be to gradually wean yourself from the prescription medications. Your physicians office can advise you on how to do this. Plan to take your pain medication so it is effective when your therapy session is planned; do not take extra doses. Change your position every 45 minutes throughout the day. Use ice for pain control. Applying ice to your new joint will decrease swelling, but do not use ice for more than 20 minutes each hour. You can use it before and after your exercise program. A bag of frozen peas wrapped in a kitchen towel makes an ideal ice pack. Body Changes Your appetite may be not return to normal for a few days. Drink plenty of fluids to keep from getting dehydrated. You will begin to eat your normal diet a fter a few days at home. You may have difficulty sleeping. This is common. To get into a normal sleep cycle, try not to sleep or nap too much during the day. Your energy level will be decreased for the first month. Be sure to take frequent rest breaks. Pain medication contains narcotics, which can cause constipation. Use stool softeners or laxatives according to directions. Caring for your Incision You will be given specific instructions at the time of discharge regarding the care of your incision. Notify your surgeons office of any signs of infection. These could include increased drainage, redness, pain, and odor or warmth around the incision. Take your temperature if you feel warm or sick. Call your surgeons office if it exceeds 101o F Preventing Blood Clots Take your aspirin or blood thinner as prescribed by your physician. Continue doing the foot and ankle pumps and exercises that you learned in the hospital. Walk throughout your day. Take walks around your home every 1-2 hours while awake. Continue to wear your special white compression stockings (TEDS) during the day. You may take them off at night while in bed and replace them in the morning when you first get up. Along with helping to prevent blood clots, they also help prevent swelling in your operative leg. We ask that you continue to wear your stockings for the first 5-6 weeks after surgery. Warning Signs of Blood Clots and What to Do Swelling in the thigh, calf or ankle that does not go down with elevation Pain or tenderness in the calf Redness or warmth in the calf If swelling in the operative leg is bothersome, elevate the leg for short periods throughout the day. Its best to lie down and raise the leg above your heart level. Notify your physician immediately if you notice increased pain or swelling in either leg. Call 06-10- if you have any shortness of breath or difficulty breathing. Plan of Treatment: Strength and gait training with home PT reduce pain control Condition: Improved - Instructions Diet, Activity, Other Instructions: Discharge Instructions for Hip Replacement Post Operative Instructions Physical activity Use assistive devices for ambulation at all times. Weight bearing as tolerated on your surgical side. Wound care Leave your surgical dressing in place. Do not change the dressing until seen by your surgeon in the office. No baths or showers. Do not submerge your incision. Do not apply any ointments or lotions to your incision. Please call the office if your dressing is soiled/dirty or is falling off. Apply Graduated Compression Stockings (TEDS) to both lower extremities-remove daily for hygiene ONLY. Diet There are no dietary restrictions. Eat healthy, high-fiber foods. Drink 6 to 8 glasses of liquid each day. This will assist in keeping your bowels are regular. Pain management You may take Acetaminophen (Tylenol) or Ibuprofen as needed for pain. To best keep pain controlled you may alternate Acetaminophen and Ibuprofen every 3 hours for the first 2-3 days after surgery. For example, take Acetaminophen at 9am followed by Ibuprofen at 12pm followed by Acetaminophen at 3pm. Make sure to keep track of the medications you are taking by writing the dosage and timing down on a piece of paper. Take Narcotics as needed for severe pain. Do not drive, drink alcohol or operate heavy machinery while taking narcotic pain medications. Posterior Hip Precautions: Do not cross the leg you had surgery on over your other leg. (Do not cross your legs.)Use an elevated toilet seat. Do not sit on low chairs or beds. Use purple pillow (abductor) when lying in bed. Take Bactrim DS (antibiotic) twice daily every day for a total of TEN DAYS. This medication began on in the evening, the course will be completed on 06/02 after your morning dose. Take Aspirin 81 mg two times a day for a total of 6 weeks to prevent blood clots. Call Dr. Hayden for any of the following: Severe pain not relieved by medication Fever of 101 or higher Excessive bleeding or drainage on dressing Inability to urinate If you experience chest pain or shortness of breath, please seek emergency care immediately. Istop: [phone] Please call the office at [phone] to confirm your post-op appointment in 2 weeks Referrals: Kyaw Hayden MD [Staff Physician] - Disposition: HOME - Home Medications Comprehensive Discharge Medication List: Ambulatory Orders Ibuprofen 600 mg PO Q6H PRN #30 tablet 05/12/17 Ibuprofen 800 mg PO DAILY 04/15/19 Levothyroxine [Synthroid -] 88 mcg PO DAILY 04/15/19 Levothyroxine [Synthroid -] 100 mcg PO DAILY 05/21/20 Rosuvastatin [Crestor -] 10 mg PO DAILY 05/21/20 Saw/Vit E/Sod Eliana/Lyc/Beta/Pyg [Prostate Health Caplet] 1 each PO DAILY 05/21/20 Aspirin [Aspirin EC] 81 mg PO BID #84 tablet. 05/23/20 Docusate Sodium [Colace] 100 mg PO BID #20 capsule 05/23/20 Sulfamethoxazole/Trimethoprim [Bactrim Ds -] 1 tab PO BID #16 tablet 05/23/20 oxyCODONE HCL [Roxicodone -] 5 mg PO Q6H PRN #26 tablet MDD 5 05/23/20 Walker [Ultra-Light Rollator] 1 each MC DAILY 1000 Days #1 each 05/26/20 Prescription Drug Monitoring Program (I-STOP) results: I-STOP not reviewed This patient is new to me today: No Emergency Visit: No Critical Care patient: No - Discharge Referral Referred to [facility] Med P.C.: No
== END 2020-05-26 21:10 | disposition home or self-care (01) | DRG 470 ==
LOC: EDBD → J2C 04:24 → J6S 17:02
PROVIDERS: ADMIT Orthopaedic Surgery; ATTEND Nurse Practitioner Family
PROC: 0QB40ZZ Excision of Right Acetabulum, Open Approach (ICD-10-PCS; 2020-05-22)
PROC: 0SR90JA Replacement of Right Hip Joint with Synthetic Substitute, Uncemented, Open Approach (ICD-10-PCS; principal; 2020-05-22 12:00)
DX: M16.11 Unilateral primary osteoarthritis, right hip (principal); M76.891 Other specified enthesopathies of right lower limb, excluding foot; Z86.718 Personal history of other venous thrombosis and embolism; Z79.01 Long term (current) use of anticoagulants; E78.5 Hyperlipidemia, unspecified; E03.9 Hypothyroidism, unspecified; F10.10 Alcohol abuse, uncomplicated; F17.210 Nicotine dependence, cigarettes, uncomplicated
CPT/HCPCS: 36415; 73502-TC-RT-FY; 80048; 80053; 83735; 85025; 85027; 86850; 86900; 86901; 88305-TC; 88311-TC; 90670; 94760; 97116-GP; 97162-GP

== ENCOUNTER 2020-08-25 21:02 | Observation (INO) | payer OTHER ==
[2020-08-25 21:32] VITALS: BMI 23.0
[2020-08-25] MEDS ORDERED: ASPIRIN 81 MG CHEWABLE TABLETS PO ONE (22:50)
[2020-08-25] MEDS ORDERED: ASPIRIN 81 MG CHEWABLE TABLETS ONE (23:24)
[2020-08-25 23:40] LABS: BASO % 1.3 % (0-2.0); HEMATOCRIT 43.4 % (35.4-49); HEMOGLOBIN 14.8 GM/dL (11.7-16.9); LYMPH % 34.1 % (8-40); MCH 31.9 pg (25.7-33.7); MCHC 34.1 g/dl (32.0-35.9); MEAN CELL VOLUME 93.7 fl (80-96); MONO % 8.6 % (3.8-10.2); PLATELET COUNT 309 K/MM3 (134-434); RBC 4.64 M/mm3 (4.00-5.60); RDW 14.8 % (11.9-15.9); WHITE BLOOD COUNT 7.2 K/mm3 (4.0-10.0)
[2020-08-26] LABS: POTASSIUM 3.7 mmol/L (3.5-5.1)
[2020-08-26 00:02] LABS: ALBUMIN 3.7 g/dl (3.4-5.0); BLOOD UREA NITROGEN 10.7 mg/dL (7-18); CALCIUM 8.7 mg/dL (8.5-10.1)
[2020-08-26 00:05] LABS: CREATININE 1.3 mg/dL (0.55-1.3)
[2020-08-26 00:07] LABS: BILIRUBIN,TOTAL 1.1 mg/dL (0.2-1); TOT PROT 8.3 g/dl (6.4-8.2)
[2020-08-26 02:47] LABS: INR 1.08 (0.83-1.09)
[2020-08-26] MEDS ORDERED: LEVOTHYROXINE NA 88 MCG TABLET (FP) PO SCH (07:00)
[2020-08-26] MEDS ORDERED: ASPIRIN COATED 81 MG TABLET.EC ONE (09:29)
[2020-08-26] MEDS ORDERED: HEPARIN NA (PORCINE) 5,000 UNITS/ML 1ML VIAL ONE (09:29)
[2020-08-26] MEDS ORDERED: ASPIRIN COATED 81 MG TABLET.EC PO SCH (10:00)
[2020-08-26] MEDS ORDERED: ROSUVASTATIN CA 10 MG TABLET (FP) PO SCH (10:00)
[2020-08-26] MEDS ORDERED: DOCUSATE SODIUM 100 MG CAPSULE (FP) PO SCH (10:00)
[2020-08-26] MEDS ORDERED: HEPARIN NA (PORCINE) 5,000 UNITS/ML 1ML VIAL SQ SCH (10:00)
[2020-08-26] MEDS ORDERED: APIXABAN 5 MG TABLET PO SCH (10:30)
[2020-08-26] MEDS ORDERED: APIXABAN 5 MG TABLET ONE ×2 (10:44)
[2020-08-26 12:22] VITALS: BP 140/74; PULSE 48; TEMP 98.5
[2020-08-27] MEDS ORDERED: ASPIRIN COATED 81 MG TABLET.EC PO SCH (10:00)
== END 2020-08-26 13:00 | disposition left against medical advice (07) ==
LOC: JER 21:02 → JERBED 08-26 00:40 → INTOOBSV 08-26 00:40 → UNDOADMOB 08-26 00:40 → JERBED 08-26 10:20
PROVIDERS: ADMIT Internal Medicine; ATTEND Internal Medicine
DX: R79.89 Other specified abnormal findings of blood chemistry (principal); I25.10 Atherosclerotic heart disease of native coronary artery without angina pectoris; I11.9 Hypertensive heart disease without heart failure; I25.2 Old myocardial infarction; J44.9 Chronic obstructive pulmonary disease, unspecified; M19.90 Unspecified osteoarthritis, unspecified site; E03.9 Hypothyroidism, unspecified; R73.9 Hyperglycemia, unspecified; R00.1 Bradycardia, unspecified; E78.5 Hyperlipidemia, unspecified; R07.9 Chest pain, unspecified; Z86.718 Personal history of other venous thrombosis and embolism; F17.210 Nicotine dependence, cigarettes, uncomplicated; Z91.14 Patient's other noncompliance with medication regimen
CPT/HCPCS: 36415; 71046-TC-FY; 71275-TC; 80053; 80061; 82550; 82553; 83036; 83721; 84439; 84443; 84484; 85025; 85379; 85610; 85730; 93005; 93010; 93970-TC; 99285-25; C9803; G0378; U0003

== ENCOUNTER 2021-02-28 10:27 | Emergency (ER) | payer OTHER ==
[2021-02-28] MEDS ORDERED: BAMLANIVIMAB 700 MG, ETESEVIMAB 1,400 MG in SODIUM CHLORIDE 250 ML IVPB ONE (10:50)
[2021-02-28 10:51] VITALS: BMI 24.4
[2021-02-28 11:37] LABS: HEMATOCRIT 42.8 % (35.4-49); HEMOGLOBIN 14.6 GM/dL (11.7-16.9); MCH 31.9 pg (25.7-33.7); MCHC 34.1 g/dl (32.0-35.9); MEAN CELL VOLUME 93.5 fl (80-96); MEAN PLT VOLUME 7.9 fl (7.5-11.1); PLATELET COUNT 220 K/MM3 (134-434); RBC 4.57 M/mm3 (4.00-5.60); RDW 13.8 % (11.9-15.9); WHITE BLOOD COUNT 4.8 K/mm3 (4.0-10.0)
[2021-02-28 11:49] LABS: CALCIUM 8.5 mg/dL (8.5-10.1)
[2021-02-28 11:50] LABS: BLOOD UREA NITROGEN 19.3 mg/dL (7-18)
[2021-02-28 11:53] LABS: CREATININE 1.4 mg/dL (0.55-1.3)
[2021-02-28 14:28] VITALS: PULSE 61; TEMP 99.1
[2021-02-28 14:36] VITALS: BP 126/69
== END 2021-02-28 14:59 | disposition home or self-care (01) ==
LOC: JER 10:27
DX: U07.1 COVID-19 (principal)
CPT/HCPCS: 36415; 71046-TC-FY; 80048; 85027; 99284-25; M0239; Q0245

== ENCOUNTER 2021-04-02 13:28 | Inpatient (IN) | payer OTHER ==
[2021-04-02] MEDS ORDERED: SODIUM CHLORIDE 1,000 ML IV SCH ×3 (13:45→17:30)
[2021-04-02 14:44] LABS: VENOUS BASE EXCESS -7.3 mmol/L (-2-2); VENOUS O2 SATURATION 73.5 % (70-80); VENOUS PCO2 41.7 mmHg (38-52); VENOUS PH 7.278 (7.310-7.410)
[2021-04-02 14:46] LABS: BASO % 0.7 % (0-2.0); EOS % 0.5 % (0-4.5); HEMATOCRIT 40.7 % (35.4-49); HEMOGLOBIN 13.7 GM/dL (11.7-16.9); LYMPH % 12.3 % (8-40); MCH 31.4 pg (25.7-33.7); MCHC 33.6 g/dl (32.0-35.9); MEAN CELL VOLUME 93.4 fl (80-96); MEAN PLT VOLUME 8.1 fl (7.5-11.1); MONO % 6.5 % (3.8-10.2); PLATELET COUNT 249 10^3/uL (134-434); RBC 4.36 M/mm3 (4.00-5.60); RDW 13.1 % (11.9-15.9); WHITE BLOOD COUNT 9.5 K/mm3 (4.0-10.0)
[2021-04-02 15:08] LABS: EPI CELLS 7 /uL (0-25.1); HYALINE CASTS 0 /uL (0-3.1); PH,URINE 5.5 (5.0-8.0); URINE APPEARANCE CLEAR; URINE BACTERIA 299 /uL (0-1359); URINE BILIRUBIN NEGATIVE (NEGATIVE); URINE COLOR YELLOW; URINE GLUCOSE (UA) 3+ (NEGATIVE); URINE KETONE 1+ (NEGATIVE); URINE LEUK ESTERASE NEGATIVE (NEGATIVE); URINE NITRITE NEGATIVE (NEGATIVE); URINE PROTEIN TRACE (NEGATIVE); URINE RBC 7 /uL (0-23.9); URINE UROBILINOGEN 0.2 mg/dL (0.2-1.0); URINE WBC 20 /uL (0-25.8)
[2021-04-02 15:49] LABS: ALBUMIN 3.8 g/dl (3.4-5.0); ALK PHOS 99 U/L (45-117); ANION GAP 18 MMOL/L (8-16); BILIRUBIN,TOTAL 2.2 mg/dL (0.2-1); CALCIUM 9.1 mg/dL (8.5-10.1); CHLORIDE 94 mmol/L (98-107); CO2 19 mmol/L (21-32); CREATININE 2.2 mg/dL (0.55-1.3); GLUCOSE,RANDOM 722 mg/dL (74-106); SGOT/AST 12 U/L (15-37); SGPT/ALT 17 U/L (13-61); SODIUM 130 mmol/L (136-145); TOT PROT 8.8 g/dl (6.4-8.2)
[2021-04-02] MEDS ORDERED: METOCLOPRAMIDE HCL INJECTION 10 MG/2 ML VIAL IVPUSH STA (16:03)
[2021-04-02] MEDS ORDERED: INSULIN REGULAR HUMAN 100 UNITS/ML *VIAL* (FOR IVP) IVPUSH ONE (16:03)
[2021-04-02] MEDS ORDERED: POTASSIUM CHLORIDE 20 MEQ PREMIX IVPB 100 ML IVPB ONE (16:08)
[2021-04-02] MEDS ORDERED: INSULIN REGULAR 100 UNITS in SODIUM CHLORIDE 99 ML IVPB SCH (16:15)
[2021-04-02] MEDS ORDERED: KCL 10 MEQ IVPB 20 MEQ/200 ML INFUS.BAG IVPB ONE (16:49)
[2021-04-02] MEDS ORDERED: METOCLOPRAMIDE HCL INJECTION 10 MG/2 ML VIAL ONE (16:49)
[2021-04-02] MEDS ORDERED: SODIUM CHLORIDE 1,000 ML IV ONE (17:30)
[2021-04-02] MEDS ORDERED: SODIUM CHLORIDE 0.9% 500 ML INFUS.BAG IV ONE (17:31)
[2021-04-02 19:12] LABS: BASO % 0.7 % (0-2.0); EOS % 0.3 % (0-4.5); HEMOGLOBIN 12.8 GM/dL (11.7-16.9); LYMPH % 20.4 % (8-40); MCH 31.1 pg (25.7-33.7); MCHC 33.6 g/dl (32.0-35.9); MEAN CELL VOLUME 92.5 fl (80-96); MONO % 8.5 % (3.8-10.2); NEUT % 70.1 % (42.8-82.8); PLATELET COUNT 234 10^3/uL (134-434); RDW 13.1 % (11.9-15.9); WHITE BLOOD COUNT 11.1 K/mm3 (4.0-10.0)
[2021-04-02 19:17] LABS: VENOUS BASE EXCESS -7.1 mmol/L (-2-2); VENOUS O2 SATURATION 38.8 % (70-80); VENOUS PH 7.222 (7.310-7.410)
[2021-04-02 19:38] LABS: BLOOD UREA NITROGEN 33.1 mg/dL (7-18); CALCIUM 8.6 mg/dL (8.5-10.1)
[2021-04-02 19:41] LABS: CREATININE 1.7 mg/dL (0.55-1.3)
[2021-04-02 21:57] VITALS: BMI 23.3
[2021-04-02 23:50] LABS: CALCIUM 8.3 mg/dL (8.5-10.1)
[2021-04-02 23:51] LABS: MAGNESIUM 2.7 mg/dL (1.8-2.4)
[2021-04-02 23:55] LABS: CREATININE 1.4 mg/dL (0.55-1.3); PHOSPHOROUS 2.3 mg/dL (2.5-4.9)
[2021-04-03] MEDS ORDERED: INSULIN (LEVEMIR) 100 UNITS/ML UNITS SQ SCH (01:15)
[2021-04-03 01:22] LABS: ALBUMIN 3.3 g/dl (3.4-5.0); CALCIUM 8.7 mg/dL (8.5-10.1)
[2021-04-03 01:23] LABS: MAGNESIUM 2.8 mg/dL (1.8-2.4)
[2021-04-03 01:27] LABS: BILIRUBIN,TOTAL 1.6 mg/dL (0.2-1); CREATININE 1.5 mg/dL (0.55-1.3); PHOSPHOROUS 2.2 mg/dL (2.5-4.9); TOT PROT 7.6 g/dl (6.4-8.2)
[2021-04-03] MEDS ORDERED: POTASSIUM PHOSPHATE 15 MM in SODIUM CHLORIDE 250 ML IVPB ONE (02:08)
[2021-04-03] MEDS: INSULIN SLIDING SCALE (NOVOLOG) 1 VIAL SQ SCH ×4 (06:03→22:25)
[2021-04-03] MEDS: LEVOTHYROXINE NA 100 MCG TABLET (FP) PO SCH (06:03)
[2021-04-03 07:38] LABS: BASO % 0.7 % (0-2.0); EOS % 1.3 % (0-4.5); HEMATOCRIT 36.8 % (35.4-49); HEMOGLOBIN 12.4 GM/dL (11.7-16.9); LYMPH % 31.6 % (8-40); MCH 31.1 pg (25.7-33.7); MCHC 33.7 g/dl (32.0-35.9); MEAN CELL VOLUME 92.3 fl (80-96); MEAN PLT VOLUME 8.7 fl (7.5-11.1); MONO % 6.6 % (3.8-10.2); NEUT % 59.8 % (42.8-82.8); PLATELET COUNT 245 10^3/uL (134-434); RBC 3.98 M/mm3 (4.00-5.60); RDW 13.2 % (11.9-15.9); WHITE BLOOD COUNT 9.9 K/mm3 (4.0-10.0)
[2021-04-03] MEDS: INSULIN (LEVEMIR) 100 UNITS/ML UNITS SQ SCH ×2 (08:40→22:24)
[2021-04-03] MEDS: APIXABAN 5 MG TABLET PO SCH ×2 (09:48→22:24)
[2021-04-03] MEDS ORDERED: ASPIRIN COATED 81 MG TABLET.EC PO SCH (10:00)
[2021-04-03] MEDS ORDERED: APIXABAN 5 MG TABLET PO SCH (10:00)
[2021-04-03] MEDS ORDERED: SODIUM PHOSPHATE - 30 MM in SODIUM CHLORIDE 500 ML IVPB ONE ×2 (11:25→12:00)
[2021-04-03] MEDS: LACTATED RINGERS SOLUTION 1,000 ML/1,000 ML INFUS.BAG IV SCH (11:41)
[2021-04-03] MEDS: INSULIN (NOVOLOG) ASPART 100 UNITS/ML 10ML VIAL SQ SCH ×2 (11:42→16:45)
[2021-04-03 18:50] LABS: EPI CELLS 5 /uL (0-25.1); HYALINE CASTS 2 /uL (0-3.1); PH,URINE 5.5 (5.0-8.0); URINE APPEARANCE CLOUDY; URINE BACTERIA >9,000 /uL (0-1359); URINE BILIRUBIN NEGATIVE (NEGATIVE); URINE COLOR YELLOW; URINE GLUCOSE (UA) 1+ (NEGATIVE); URINE KETONE NEGATIVE (NEGATIVE); URINE LEUK ESTERASE 2+ (NEGATIVE); URINE NITRITE NEGATIVE (NEGATIVE); URINE PROTEIN TRACE (NEGATIVE); URINE RBC 19 /uL (0-23.9); URINE UROBILINOGEN 0.2 mg/dL (0.2-1.0); URINE WBC 760 /uL (0-25.8)
[2021-04-03] MEDS ORDERED: INSULIN (NOVOLOG) ASPART 100 UNITS/ML 10ML VIAL ONE (20:35)
[2021-04-04 05:26] VITALS: PULSE 62; TEMP 97.8
[2021-04-04] MEDS: INSULIN (LEVEMIR) 100 UNITS/ML UNITS SQ SCH (06:34)
[2021-04-04] MEDS: LEVOTHYROXINE NA 100 MCG TABLET (FP) PO SCH (06:35)
[2021-04-04] MEDS: INSULIN SLIDING SCALE (NOVOLOG) 1 VIAL SQ SCH ×2 (06:35→11:15)
[2021-04-04] MEDS: INSULIN (NOVOLOG) ASPART 100 UNITS/ML 10ML VIAL SQ SCH ×2 (06:39→11:14)
[2021-04-04 07:44] LABS: HEMATOCRIT 39.4 % (35.4-49); MCH 30.9 pg (25.7-33.7); MCHC 33.1 g/dl (32.0-35.9); MEAN CELL VOLUME 93.5 fl (80-96); MEAN PLT VOLUME 8.4 fl (7.5-11.1); PLATELET COUNT 228 10^3/uL (134-434); RBC 4.21 M/mm3 (4.00-5.60); RDW 13.6 % (11.9-15.9); WHITE BLOOD COUNT 9.1 K/mm3 (4.0-10.0)
[2021-04-04 08:03] LABS: ALBUMIN 3.2 g/dl (3.4-5.0); BLOOD UREA NITROGEN 18.5 mg/dL (7-18)
[2021-04-04 08:08] LABS: BILIRUBIN,TOTAL 1.2 mg/dL (0.2-1); CREATININE 1.2 mg/dL (0.55-1.3); PHOSPHOROUS 3.9 mg/dL (2.5-4.9); TOT PROT 7.6 g/dl (6.4-8.2)
[2021-04-04] MEDS ORDERED: INSULIN (LEVEMIR) 100 UNITS/ML UNITS SQ SCH (08:19)
[2021-04-04 08:20] VITALS: BP 115/80
[2021-04-04] MEDS ORDERED: ASPIRIN COATED 81 MG TABLET.EC PO SCH (10:00)
[2021-04-04] MEDS: LACTATED RINGERS SOLUTION 1,000 ML/1,000 ML INFUS.BAG IV SCH (11:07)
[2021-04-04] MEDS: APIXABAN 5 MG TABLET PO SCH (11:07)
== END 2021-04-04 14:50 | disposition home or self-care (01) | DRG 638 ==
LOC: JER 13:28 → JERBED 16:34 → J4W 20:54
PROVIDERS: ADMIT Hospitalist; ATTEND Student in an Organized Health Care Education/Training Program
DX: E11.10 Type 2 diabetes mellitus with ketoacidosis without coma (principal); I24.8 Other forms of acute ischemic heart disease; N17.9 Acute kidney failure, unspecified; E87.1 Hypo-osmolality and hyponatremia; I12.9 Hypertensive chronic kidney disease with stage 1 through stage 4 chronic kidney disease, or unspecified chronic kidney disease; E11.22 Type 2 diabetes mellitus with diabetic chronic kidney disease; E11.42 Type 2 diabetes mellitus with diabetic polyneuropathy; N18.9 Chronic kidney disease, unspecified; E03.9 Hypothyroidism, unspecified; E78.5 Hyperlipidemia, unspecified; I48.0 Paroxysmal atrial fibrillation; I25.2 Old myocardial infarction; I25.10 Atherosclerotic heart disease of native coronary artery without angina pectoris; R25.1 Tremor, unspecified; J44.9 Chronic obstructive pulmonary disease, unspecified; D72.829 Elevated white blood cell count, unspecified; Z86.718 Personal history of other venous thrombosis and embolism; Z86.711 Personal history of pulmonary embolism
CPT/HCPCS: 36415; 70450-TC; 70551-TC; 71045-TC-FY; 72141-TC; 76775-TC; 80048; 80053; 81003; 82010; 82550; 82553; 82607; 82803; 82962; 83036; 83735; 84100; 84443; 84484; 85025; 85027; 87086; 93005; 93010; 97116-GP; 97162-GP; 99285-25; C9803; U0003; U0005

== ENCOUNTER 2021-04-06 10:09 | Inpatient (IN) | payer OTHER ==
[2021-04-06] MEDS ORDERED: LACTATED RINGERS SOLUTION 1000 ML INFUS.BAG IV ONE (10:29)
[2021-04-06] MEDS ORDERED: INSULIN REGULAR HUMAN 100 UNITS/ML *VIAL* (FOR IVP) IVPUSH ONE (10:32)
[2021-04-06] MEDS ORDERED: SODIUM CHLORIDE 0.9% 500 ML INFUS.BAG IV ONE ×3 (10:41→15:00)
[2021-04-06 11:26] LABS: ARTERIAL BLD GAS O2 SATURATION 93.5 mmHg (95-98); ARTERIAL BLOOD GAS BASE EXCESS -5.5 mmol/L (-2-2); ARTERIAL BLOOD GAS PO2 68.6 mmHg (80-100); ARTERIAL BLOOD GAS pH 7.372 (7.350-7.450)
[2021-04-06 11:30] LABS: ALLENS TEST POSITIVE
[2021-04-06 11:44] LABS: VENOUS BASE EXCESS -7.2 mmol/L (-2-2); VENOUS O2 SATURATION 92.4 % (70-80); VENOUS PCO2 31.7 mmHg (38-52); VENOUS PH 7.352 (7.310-7.410)
[2021-04-06 11:47] LABS: BASO % 0.5 % (0-2.0); EOS % 0.2 % (0-4.5); HEMOGLOBIN 12.1 GM/dL (11.7-16.9); LYMPH % 6.1 % (8-40); MCH 30.9 pg (25.7-33.7); MCHC 33.5 g/dl (32.0-35.9); MEAN CELL VOLUME 92.1 fl (80-96); MEAN PLT VOLUME 8.7 fl (7.5-11.1); MONO % 4.9 % (3.8-10.2); NEUT % 88.3 % (42.8-82.8); PLATELET COUNT 228 10^3/uL (134-434); RDW 13.7 % (11.9-15.9); WHITE BLOOD COUNT 11.6 K/mm3 (4.0-10.0)
[2021-04-06 11:50] LABS: INR 1.06 (0.83-1.09); PROTHROMBIN TIME (PATIENT) 12.8 SEC (9.7-13.0)
[2021-04-06 11:53] LABS: ACTIVATED PTT 21.5 SECONDS (25.2-36.5)
[2021-04-06 12:10] LABS: CHLORIDE 103 mmol/L (98-107); SODIUM 137 mmol/L (136-145)
[2021-04-06 12:12] LABS: MAGNESIUM 2.1 mg/dL (1.8-2.4)
[2021-04-06 12:12] LABS: ALBUMIN 3.1 g/dl (3.4-5.0); ANION GAP 16 MMOL/L (8-16); BLOOD UREA NITROGEN 21.8 mg/dL (7-18); CALCIUM 8.4 mg/dL (8.5-10.1); CO2 18 mmol/L (21-32)
[2021-04-06 12:15] LABS: CREATININE 1.6 mg/dL (0.55-1.3); SGOT/AST 15 U/L (15-37); SGPT/ALT 18 U/L (13-61)
[2021-04-06 12:15] LABS: PHOSPHOROUS 4.3 mg/dL (2.5-4.9)
[2021-04-06 12:16] LABS: BILIRUBIN,TOTAL 1.3 mg/dL (0.2-1)
[2021-04-06 12:17] LABS: TOT PROT 7.1 g/dl (6.4-8.2)
[2021-04-06 12:18] LABS: ALK PHOS 78 U/L (45-117)
[2021-04-06 12:50] LABS: GLUCOSE,RANDOM 485 mg/dL (74-106)
[2021-04-06] MEDS ORDERED: INSULIN REGULAR HUMAN 100 UNITS/ML *VIAL IVPUSH ONE (12:54)
[2021-04-06] MEDS ORDERED: KCL 10 MEQ IVPB 10 MEQ/100 ML INFUS.BAG IVPB SCH (13:30)
[2021-04-06] MEDS ORDERED: ACETAMINOPHEN 1000 MG/100 ML VIAL (NON FORMULARY) IVPB ONE (14:05)
[2021-04-06] MEDS ORDERED: KCL 10 MEQ IVPB 10 MEQ/100 ML INFUS.BAG IVPB ONE (14:31)
[2021-04-06] MEDS ORDERED: ACETAMINOPHEN INJECTION 100 ML IVPB ONE (14:31)
[2021-04-06 15:38] LABS: CALCIUM 8.5 mg/dL (8.5-10.1)
[2021-04-06 15:39] LABS: BLOOD UREA NITROGEN 20.9 mg/dL (7-18)
[2021-04-06 15:41] LABS: EPI CELLS 1 /uL (0-25.1); HYALINE CASTS 0 /uL (0-3.1); PH,URINE 5.5 (5.0-8.0); URINE APPEARANCE CLEAR; URINE BACTERIA 5694 /uL (0-1359); URINE BILIRUBIN NEGATIVE (NEGATIVE); URINE COLOR YELLOW; URINE GLUCOSE (UA) 3+ (NEGATIVE); URINE KETONE 1+ (NEGATIVE); URINE LEUK ESTERASE 2+ (NEGATIVE); URINE NITRITE NEGATIVE (NEGATIVE); URINE PROTEIN NEGATIVE (NEGATIVE); URINE RBC 12 /uL (0-23.9); URINE UROBILINOGEN 0.2 mg/dL (0.2-1.0); URINE WBC 478 /uL (0-25.8)
[2021-04-06 15:42] LABS: CREATININE 1.2 mg/dL (0.55-1.3)
[2021-04-06 15:43] LABS: BILIRUBIN,TOTAL 0.9 mg/dL (0.2-1); TOT PROT 7.2 g/dl (6.4-8.2)
[2021-04-06] MEDS: SODIUM CHLORIDE 0.45% 1,000 ML IV SCH (16:16)
[2021-04-06] MEDS: INSULIN SLIDING SCALE (NOVOLOG) 1 VIAL SQ SCH ×2 (17:01→22:23)
[2021-04-06] MEDS ORDERED: CEFTRIAXONE 1,000 MG in DEXTROSE 5%-WATER - 50 ML IVPB ONE (17:40)
[2021-04-06] MEDS ORDERED: CEFTRIAXONE 1 GM/50 ML BAG ONE (17:57)
[2021-04-06] MEDS: APIXABAN 5 MG TABLET PO SCH (21:43)
[2021-04-06] MEDS ORDERED: INSULIN (LEVEMIR) 100 UNITS/ML UNITS SQ SCH (22:00)
[2021-04-06 22:54] VITALS: BMI 22.2
[2021-04-07] MEDS: INSULIN (LEVEMIR) 100 UNITS/ML UNITS SQ SCH ×2 (06:42→21:47)
[2021-04-07] MEDS: INSULIN SLIDING SCALE (NOVOLOG) 1 VIAL SQ SCH ×4 (06:43→21:48)
[2021-04-07] MEDS: SODIUM CHLORIDE 0.45% 1,000 ML IV SCH ×3 (06:53→16:54)
[2021-04-07] MEDS ORDERED: LEVOTHYROXINE NA 100 MCG TABLET (FP) PO SCH (07:00)
[2021-04-07 07:03] LABS: BASO % 0.9 % (0-2.0); EOS % 2.7 % (0-4.5); HEMATOCRIT 32.4 % (35.4-49); HEMOGLOBIN 11.1 GM/dL (11.7-16.9); LYMPH % 33.5 % (8-40); MCH 31.6 pg (25.7-33.7); MCHC 34.2 g/dl (32.0-35.9); MEAN CELL VOLUME 92.5 fl (80-96); MEAN PLT VOLUME 8.1 fl (7.5-11.1); MONO % 8.7 % (3.8-10.2); NEUT % 54.2 % (42.8-82.8); PLATELET COUNT 256 10^3/uL (134-434); RDW 13.4 % (11.9-15.9); WHITE BLOOD COUNT 9.1 K/mm3 (4.0-10.0)
[2021-04-07 07:13] LABS: CALCIUM 8.3 mg/dL (8.5-10.1)
[2021-04-07 07:14] LABS: ALBUMIN 2.8 g/dl (3.4-5.0)
[2021-04-07 07:17] LABS: CREATININE 0.9 mg/dL (0.55-1.3)
[2021-04-07 07:19] LABS: BILIRUBIN,TOTAL 0.6 mg/dL (0.2-1); TOT PROT 6.8 g/dl (6.4-8.2)
[2021-04-07] MEDS: LEVOTHYROXINE NA 75 MCG TABLET (FP) PO SCH (07:21)
[2021-04-07] MEDS: ASPIRIN 81 MG CHEWABLE TABLETS PO SCH (09:25)
[2021-04-07] MEDS: APIXABAN 5 MG TABLET PO SCH ×2 (09:25→21:25)
[2021-04-07] MEDS ORDERED: ENOXAPARIN NA (PORCINE) 40 MG/0.4 ML DISP.SYRIN SQ SCH (10:00)
[2021-04-08] MEDS ORDERED: diazePAM CARPU-JECT 10 MG/2 ML DISP.SYRIN IVPUSH ONE (06:05)
[2021-04-08] MEDS: metFORMIN HCL 500 MG TABLET (FP) PO SCH ×2 (06:57→16:07)
[2021-04-08] MEDS: sitaGLIPtin PHOSPHATE 50 MG TABLET PO SCH (06:57)
[2021-04-08] MEDS: INSULIN (LEVEMIR) 100 UNITS/ML UNITS SQ SCH (06:57)
[2021-04-08] MEDS: LEVOTHYROXINE NA 75 MCG TABLET (FP) PO SCH (06:58)
[2021-04-08] MEDS: INSULIN SLIDING SCALE (NOVOLOG) 1 VIAL SQ SCH ×4 (06:58→21:56)
[2021-04-08 07:04] LABS: BASO % 0.5 % (0-2.0); HEMATOCRIT 36.8 % (35.4-49); HEMOGLOBIN 12.2 GM/dL (11.7-16.9); LYMPH % 25.3 % (8-40); MCH 30.9 pg (25.7-33.7); MCHC 33.1 g/dl (32.0-35.9); MEAN CELL VOLUME 93.2 fl (80-96); MEAN PLT VOLUME 8.7 fl (7.5-11.1); MONO % 6.3 % (3.8-10.2); NEUT % 65.9 % (42.8-82.8); PLATELET COUNT 320 10^3/uL (134-434); RBC 3.95 M/mm3 (4.00-5.60); RDW 13.4 % (11.9-15.9); WHITE BLOOD COUNT 12.2 K/mm3 (4.0-10.0)
[2021-04-08 07:27] LABS: ALBUMIN 3.2 g/dl (3.4-5.0); CALCIUM 8.8 mg/dL (8.5-10.1)
[2021-04-08 07:28] LABS: BLOOD UREA NITROGEN 12.4 mg/dL (7-18)
[2021-04-08 07:31] LABS: BILIRUBIN,TOTAL 0.5 mg/dL (0.2-1); CREATININE 1.3 mg/dL (0.55-1.3)
[2021-04-08 07:32] LABS: TOT PROT 7.7 g/dl (6.4-8.2)
[2021-04-08] MEDS: APIXABAN 5 MG TABLET PO SCH ×2 (10:09→21:52)
[2021-04-08] MEDS: ASPIRIN 81 MG CHEWABLE TABLETS PO SCH (10:09)
[2021-04-08] MEDS: SODIUM CHLORIDE 0.45% 1,000 ML IV SCH ×2 (13:25→16:27)
[2021-04-09] MEDS: INSULIN (LEVEMIR) 100 UNITS/ML UNITS SQ SCH (06:41)
[2021-04-09] MEDS: sitaGLIPtin PHOSPHATE 50 MG TABLET PO SCH (06:41)
[2021-04-09] MEDS: LEVOTHYROXINE NA 75 MCG TABLET (FP) PO SCH (06:41)
[2021-04-09] MEDS: metFORMIN HCL 500 MG TABLET (FP) PO SCH ×2 (06:41→17:40)
[2021-04-09] MEDS: INSULIN SLIDING SCALE (NOVOLOG) 1 VIAL SQ SCH ×4 (06:43→21:08)
[2021-04-09 06:44] LABS: BASO % 0.8 % (0-2.0); EOS % 2.5 % (0-4.5); HEMATOCRIT 34.8 % (35.4-49); HEMOGLOBIN 11.5 GM/dL (11.7-16.9); LYMPH % 28.3 % (8-40); MCH 30.4 pg (25.7-33.7); MCHC 33.1 g/dl (32.0-35.9); MEAN CELL VOLUME 91.9 fl (80-96); MEAN PLT VOLUME 8.6 fl (7.5-11.1); MONO % 7.5 % (3.8-10.2); NEUT % 60.9 % (42.8-82.8); PLATELET COUNT 297 10^3/uL (134-434); RBC 3.78 M/mm3 (4.00-5.60); RDW 13.2 % (11.9-15.9); WHITE BLOOD COUNT 8.5 K/mm3 (4.0-10.0)
[2021-04-09 07:03] LABS: CHLORIDE 110 mmol/L (98-107); SODIUM 143 mmol/L (136-145)
[2021-04-09 07:05] LABS: CALCIUM 8.3 mg/dL (8.5-10.1)
[2021-04-09 07:06] LABS: ALBUMIN 2.6 g/dl (3.4-5.0); ANION GAP 9 MMOL/L (8-16); BLOOD UREA NITROGEN 10.6 mg/dL (7-18); CO2 23 mmol/L (21-32); GLUCOSE,RANDOM 160 mg/dL (74-106)
[2021-04-09 07:09] LABS: CREATININE 0.8 mg/dL (0.55-1.3); SGOT/AST 104 U/L (15-37); SGPT/ALT 35 U/L (13-61)
[2021-04-09 07:10] LABS: BILIRUBIN,TOTAL 0.4 mg/dL (0.2-1)
[2021-04-09 07:11] LABS: TOT PROT 6.4 g/dl (6.4-8.2)
[2021-04-09 07:12] LABS: ALK PHOS 56 U/L (45-117)
[2021-04-09 07:40] LABS: LDL CHOLESTEROL (ONLY SJRH) 90 mg/dL (5-100)
[2021-04-09] MEDS ORDERED: POTASSIUM CHLORIDE TABS 20 MEQ TABLET.ER (FP) PO ONE ×2 (09:00→09:30)
[2021-04-09] MEDS: ASPIRIN 81 MG CHEWABLE TABLETS PO SCH (10:00)
[2021-04-09] MEDS: APIXABAN 5 MG TABLET PO SCH ×2 (10:00→21:08)
[2021-04-09] MEDS: SODIUM CHLORIDE 0.45% 1,000 ML IV SCH ×3 (10:30→22:40)
[2021-04-10] MEDS: LEVOTHYROXINE NA 75 MCG TABLET (FP) PO SCH (06:00)
[2021-04-10] MEDS: sitaGLIPtin PHOSPHATE 50 MG TABLET PO SCH (06:00)
[2021-04-10] MEDS: metFORMIN HCL 500 MG TABLET (FP) PO SCH ×2 (06:00→16:29)
[2021-04-10] MEDS: INSULIN SLIDING SCALE (NOVOLOG) 1 VIAL SQ SCH ×4 (06:00→21:32)
[2021-04-10] MEDS: INSULIN (LEVEMIR) 100 UNITS/ML UNITS SQ SCH (06:00)
[2021-04-10 07:16] LABS: BASO % 1.1 % (0-2.0); EOS % 1.8 % (0-4.5); HEMATOCRIT 32.6 % (35.4-49); HEMOGLOBIN 11.2 GM/dL (11.7-16.9); MCH 31.4 pg (25.7-33.7); MCHC 34.5 g/dl (32.0-35.9); NEUT % 77.1 % (42.8-82.8); PLATELET COUNT 292 10^3/uL (134-434); RBC 3.58 M/mm3 (4.00-5.60); RDW 13.4 % (11.9-15.9); WHITE BLOOD COUNT 10.6 K/mm3 (4.0-10.0)
[2021-04-10 07:32] LABS: CALCIUM 8.2 mg/dL (8.5-10.1)
[2021-04-10 07:33] LABS: ALBUMIN 2.6 g/dl (3.4-5.0); BLOOD UREA NITROGEN 7.8 mg/dL (7-18); MAGNESIUM 1.7 mg/dL (1.8-2.4)
[2021-04-10 07:36] LABS: CREATININE 0.7 mg/dL (0.55-1.3)
[2021-04-10 07:37] LABS: BILIRUBIN,TOTAL 0.7 mg/dL (0.2-1)
[2021-04-10 07:38] LABS: TOT PROT 6.2 g/dl (6.4-8.2)
[2021-04-10] MEDS ORDERED: POTASSIUM CHLORIDE TABS 20 MEQ TABLET.ER (FP) PO ONE (07:58)
[2021-04-10] MEDS: APIXABAN 5 MG TABLET PO SCH ×3 (08:46→21:32)
[2021-04-10] MEDS: ASPIRIN 81 MG CHEWABLE TABLETS PO SCH ×2 (08:46→09:07)
[2021-04-10] MEDS: KCL 10 MEQ IVPB 10 MEQ/100 ML INFUS.BAG IVPB SCH ×3 (08:50→11:18)
[2021-04-10] MEDS ORDERED: INSULIN (NOVOLOG) ASPART 100 UNITS/ML 10ML VIAL ONE (10:30)
[2021-04-10] MEDS: SODIUM CHLORIDE 0.45% 1,000 ML IV SCH (16:26)
[2021-04-11] MEDS: INSULIN SLIDING SCALE (NOVOLOG) 1 VIAL SQ SCH ×4 (06:28→21:25)
[2021-04-11] MEDS: INSULIN (LEVEMIR) 100 UNITS/ML UNITS SQ SCH (06:28)
[2021-04-11] MEDS: metFORMIN HCL 500 MG TABLET (FP) PO SCH ×2 (06:28→17:45)
[2021-04-11] MEDS: sitaGLIPtin PHOSPHATE 50 MG TABLET PO SCH (06:28)
[2021-04-11] MEDS: LEVOTHYROXINE NA 75 MCG TABLET (FP) PO SCH (06:28)
[2021-04-11 07:48] LABS: BASO % 0.7 % (0-2.0); EOS % 1.3 % (0-4.5); HEMATOCRIT 32.1 % (35.4-49); LYMPH % 10.3 % (8-40); MCH 31.2 pg (25.7-33.7); MCHC 34.1 g/dl (32.0-35.9); MEAN CELL VOLUME 91.4 fl (80-96); MEAN PLT VOLUME 7.9 fl (7.5-11.1); MONO % 7.8 % (3.8-10.2); NEUT % 79.9 % (42.8-82.8); PLATELET COUNT 320 10^3/uL (134-434); RBC 3.51 M/mm3 (4.00-5.60); RDW 13.5 % (11.9-15.9); WHITE BLOOD COUNT 16.2 K/mm3 (4.0-10.0)
[2021-04-11 08:16] LABS: CALCIUM 8.6 mg/dL (8.5-10.1)
[2021-04-11 08:17] LABS: ALBUMIN 2.5 g/dl (3.4-5.0)
[2021-04-11 08:20] LABS: CREATININE 0.7 mg/dL (0.55-1.3)
[2021-04-11 08:21] LABS: BILIRUBIN,TOTAL 1.2 mg/dL (0.2-1); TOT PROT 6.6 g/dl (6.4-8.2)
[2021-04-11] MEDS: ASPIRIN 81 MG CHEWABLE TABLETS PO SCH (09:22)
[2021-04-11] MEDS: APIXABAN 5 MG TABLET PO SCH ×2 (09:22→21:24)
[2021-04-11] MEDS: SODIUM CHLORIDE 0.45% 1,000 ML IV SCH (16:30)
[2021-04-12] MEDS: metFORMIN HCL 500 MG TABLET (FP) PO SCH ×2 (06:21→16:39)
[2021-04-12] MEDS: LEVOTHYROXINE NA 75 MCG TABLET (FP) PO SCH (06:21)
[2021-04-12] MEDS: sitaGLIPtin PHOSPHATE 50 MG TABLET PO SCH (06:21)
[2021-04-12] MEDS: INSULIN (LEVEMIR) 100 UNITS/ML UNITS SQ SCH (06:21)
[2021-04-12] MEDS: INSULIN SLIDING SCALE (NOVOLOG) 1 VIAL SQ SCH ×4 (06:26→21:34)
[2021-04-12 06:57] LABS: BASO % 0.8 % (0-2.0); EOS % 2.5 % (0-4.5); HEMATOCRIT 32.7 % (35.4-49); LYMPH % 16.1 % (8-40); MCH 30.9 pg (25.7-33.7); MCHC 33.5 g/dl (32.0-35.9); MEAN CELL VOLUME 92.2 fl (80-96); MEAN PLT VOLUME 7.9 fl (7.5-11.1); MONO % 7.8 % (3.8-10.2); NEUT % 72.8 % (42.8-82.8); PLATELET COUNT 352 10^3/uL (134-434); RBC 3.54 M/mm3 (4.00-5.60); RDW 13.3 % (11.9-15.9); WHITE BLOOD COUNT 12.6 K/mm3 (4.0-10.0)
[2021-04-12 07:18] LABS: CALCIUM 8.5 mg/dL (8.5-10.1)
[2021-04-12 07:19] LABS: ALBUMIN 2.4 g/dl (3.4-5.0); BLOOD UREA NITROGEN 10.4 mg/dL (7-18)
[2021-04-12 07:22] LABS: CREATININE 0.7 mg/dL (0.55-1.3)
[2021-04-12 07:23] LABS: BILIRUBIN,TOTAL 0.4 mg/dL (0.2-1); TOT PROT 6.5 g/dl (6.4-8.2)
[2021-04-12] MEDS ORDERED: POTASSIUM CHLORIDE ORAL LIQUID 20 MEQ/15 ML PO ONE (10:00)
[2021-04-12] MEDS: ASPIRIN 81 MG CHEWABLE TABLETS PO SCH (10:29)
[2021-04-12] MEDS: APIXABAN 5 MG TABLET PO SCH ×2 (10:29→21:31)
[2021-04-12] MEDS: SODIUM CHLORIDE 0.45% 1,000 ML IV SCH (16:39)
[2021-04-13] MEDS: INSULIN SLIDING SCALE (NOVOLOG) 1 VIAL SQ SCH ×4 (06:40→21:03)
[2021-04-13 06:44] LABS: BASO % 1.4 % (0-2.0); EOS % 3.4 % (0-4.5); HEMATOCRIT 31.7 % (35.4-49); LYMPH % 24.8 % (8-40); MCH 31.6 pg (25.7-33.7); MCHC 34.8 g/dl (32.0-35.9); MEAN CELL VOLUME 90.7 fl (80-96); MEAN PLT VOLUME 7.3 fl (7.5-11.1); MONO % 7.7 % (3.8-10.2); NEUT % 62.7 % (42.8-82.8); PLATELET COUNT 367 10^3/uL (134-434); RDW 13.4 % (11.9-15.9); WHITE BLOOD COUNT 9.3 K/mm3 (4.0-10.0)
[2021-04-13] MEDS: metFORMIN HCL 500 MG TABLET (FP) PO SCH ×2 (06:50→17:06)
[2021-04-13] MEDS: LEVOTHYROXINE NA 75 MCG TABLET (FP) PO SCH (06:50)
[2021-04-13] MEDS: sitaGLIPtin PHOSPHATE 50 MG TABLET PO SCH (06:50)
[2021-04-13 06:52] LABS: CHLORIDE 106 mmol/L (98-107); SODIUM 140 mmol/L (136-145)
[2021-04-13 06:55] LABS: ALBUMIN 2.5 g/dl (3.4-5.0); ANION GAP 7 MMOL/L (8-16); BLOOD UREA NITROGEN 10.9 mg/dL (7-18); CALCIUM 8.6 mg/dL (8.5-10.1); CO2 26 mmol/L (21-32); GLUCOSE,RANDOM 85 mg/dL (74-106)
[2021-04-13 06:58] LABS: CREATININE 0.8 mg/dL (0.55-1.3); SGOT/AST 23 U/L (15-37); SGPT/ALT 23 U/L (13-61)
[2021-04-13 07:00] LABS: TOT PROT 6.7 g/dl (6.4-8.2)
[2021-04-13 07:01] LABS: ALK PHOS 55 U/L (45-117)
[2021-04-13 07:04] LABS: BILIRUBIN,TOTAL 0.5 mg/dL (0.2-1)
[2021-04-13] MEDS: INSULIN (LEVEMIR) 100 UNITS/ML UNITS SQ SCH (07:42)
[2021-04-13] MEDS ORDERED: PT OWN MED DRAWER 7, Y5N ONE (09:28)
[2021-04-13] MEDS: ASPIRIN 81 MG CHEWABLE TABLETS PO SCH (09:29)
[2021-04-13] MEDS: APIXABAN 5 MG TABLET PO SCH ×2 (09:29→21:03)
[2021-04-13] MEDS: SODIUM CHLORIDE 0.45% 1,000 ML IV SCH (16:50)
[2021-04-14] MEDS: sitaGLIPtin PHOSPHATE 50 MG TABLET PO SCH (06:03)
[2021-04-14] MEDS: INSULIN SLIDING SCALE (NOVOLOG) 1 VIAL SQ SCH ×3 (06:03→17:30)
[2021-04-14] MEDS: INSULIN (LEVEMIR) 100 UNITS/ML UNITS SQ SCH (06:03)
[2021-04-14] MEDS: metFORMIN HCL 500 MG TABLET (FP) PO SCH ×2 (06:03→17:40)
[2021-04-14] MEDS: LEVOTHYROXINE NA 75 MCG TABLET (FP) PO SCH (06:03)
[2021-04-14] MEDS: ASPIRIN 81 MG CHEWABLE TABLETS PO SCH (09:40)
[2021-04-14] MEDS: APIXABAN 5 MG TABLET PO SCH (09:40)
[2021-04-14] MEDS ORDERED: PT OWN MED DRAWER 7, Y5N ONE (09:45)
[2021-04-14 17:46] VITALS: BP 119/67; PULSE 72; TEMP 98.4
== END 2021-04-14 18:25 | disposition home or self-care (01) | DRG 638 ==
LOC: JER 10:09 → JERBED 14:16 → J2W 20:51
PROVIDERS: ADMIT Internal Medicine; ATTEND Internal Medicine
DX: E11.65 Type 2 diabetes mellitus with hyperglycemia (principal); N39.0 Urinary tract infection, site not specified; N17.9 Acute kidney failure, unspecified; M62.82 Rhabdomyolysis; I24.8 Other forms of acute ischemic heart disease; R25.1 Tremor, unspecified; E78.5 Hyperlipidemia, unspecified; E03.9 Hypothyroidism, unspecified; Z86.718 Personal history of other venous thrombosis and embolism; R79.89 Other specified abnormal findings of blood chemistry; D72.829 Elevated white blood cell count, unspecified; I12.9 Hypertensive chronic kidney disease with stage 1 through stage 4 chronic kidney disease, or unspecified chronic kidney disease; N18.9 Chronic kidney disease, unspecified; I25.10 Atherosclerotic heart disease of native coronary artery without angina pectoris; F17.210 Nicotine dependence, cigarettes, uncomplicated
CPT/HCPCS: 36415; 36600; 70450-TC; 71045-TC-FY; 80053; 80061; 81003; 82010; 82550; 82553; 82803; 82962; 83721; 83735; 84100; 84439; 84443; 84480; 84484; 85025; 85610; 85730; 87040; 87086; 87186; 93005; 93010; 93306-TC; 97116-GP; 97161-GP; 99285-25; C9803; J0131; U0003; U0005

== ENCOUNTER 2023-03-24 00:14 | Emergency (ER) | payer OTHER ==
[2023-03-24 00:28] VITALS: BP 102/63; PULSE 77; RESP 18; TEMP 98.2; BMI 26.0
[2023-03-24] MEDS ORDERED: ASPIRIN 81 MG CHEWABLE TABLETS PO ONE (00:31)
[2023-03-24] MEDS ORDERED: ASPIRIN 81 MG CHEWABLE TABLETS ONE (00:34)
== END 2023-03-24 00:59 | disposition left against medical advice (07) ==
LOC: JER 00:14
DX: R07.9 Chest pain, unspecified (principal)
CPT/HCPCS: 93005; 93010; 99283-25

== ENCOUNTER 2024-03-28 18:06 | Emergency (ER) | payer OTHER ==
[2024-03-28 18:31] VITALS: BP 109/60; PULSE 70; RESP 19; TEMP 97.9; BMI 24.7
[2024-03-28] MEDS ORDERED: ACETAMINOPHEN 500 MG TABLET (FP) ONE (19:18)
[2024-03-28] MEDS: ACETAMINOPHEN 500 MG TABLET (FP) PO ONE (19:19)
== END 2024-03-28 20:14 | disposition home or self-care (01) ==
LOC: JERFT 18:06
DX: S83.91XA Sprain of unspecified site of right knee, initial encounter (principal); X58.XXXA Exposure to other specified factors, initial encounter
CPT/HCPCS: 73562-TC-RT-FY; 99283-25

== ENCOUNTER 2025-03-25 13:37 | Emergency (ER) | payer OTHER ==
[2025-03-25 13:56] VITALS: BP 103/66; PULSE 82; RESP 19; TEMP 97.7; BMI 19.8
[2025-03-25] MEDS ORDERED: ACETAMINOPHEN 325 MG TABLET (FP) ONE (14:20)
[2025-03-25] MEDS: ACETAMINOPHEN 325 MG TABLET (FP) PO ONE (14:28)
[2025-03-25] MEDS ORDERED: IBUPROFEN 400 MG TABLET (FP) PO ONE (15:24)
[2025-03-25] MEDS: IBUPROFEN 400 MG TABLET (FP) PO ONE (15:27)
== END 2025-03-25 16:16 | disposition home or self-care (01) ==
LOC: JER 13:37 → JERFT 13:37
DX: M25.541 Pain in joints of right hand (principal); M25.441 Effusion, right hand
CPT/HCPCS: 73130-TC-RT-FY; 99283-25